=== PATIENT | female | born 1960 | race Caucasian/White ===

== ENCOUNTER → 2018-05-09 08:54 | Outpatient (CLI) | payer OTHER, MEDICAID, SELFPAY ==
--- NOTE | 2018-05-09 09:14 | DI.CT.S_ITS ---
PROCEDURE: CT CHEST WO CON INDICATIONS: breast cancer lung nodule. Smoker. TECHNIQUE: Noncontrast 5 mm thick sections acquired from the pulmonary apices to the posterior costophrenic angles. 7 mm thick coronal and sagittal MIP reformats were then acquired. For radiation dose reduction, the following was used: automated exposure control, adjustment of mA and/or kV according to patient size. COMPARISON: [facility], CT, THORAX WITHOUT CONTRAST, 03/07/2017, 11:47. [facility], CT, THORAX WITHOUT CONTRAST, 11/04/2017, 9:55. FINDINGS: Image quality: Excellent. Lungs and pleura: There is a stable 0.5 cm left upper lobe pulmonary nodule compared to the prior studies. No suspicious pulmonary nodules. [id number] centrilobular emphysematous changes are redemonstrated bilaterally as well as mild subpleural reticular opacities. No acute consolidation. No pleural effusions or pneumothorax. Central and peripheral airways are patent and normal in caliber. Mediastinum: Heart size is normal. No pericardial effusion. No mediastinal adenopathy by size criteria. Thoracic aorta and central pulmonary arteries are normal in size. Esophagus is normal in caliber. No hiatal hernia. Bones and chest wall: There are surgical clips and scarring redemonstrated within the left breast. No suspicious bony lesions. No vertebral body compression fractures. No axillary or supraclavicular adenopathy by size criteria. Abdomen: Visualized upper abdominal solid organs and bowel loops appear normal in the absence of contrast. IMPRESSION: 1. Stable left upper lobe pulmonary nodule. Given patient's history of breast cancer, continued followup is recommended to demonstrate 2 year stability in 12 months. Dictated by: Nolan Hatfield M.D. on 05/09/2018 at 10:22 Approved by: Nolan Hatfield M.D. on 05/09/2018 at 10:28
--- NOTE | 2018-05-12 16:19 | PC.NURSE ---
CT scan-AN/SYQ 13 NAV/C2 OPERATOR requested triage nurse call to let pt know CT scan of chest is stable -no evidence of malignancy with stable pulmonary nodule.Repoted to pt via phone
== END ==
PROVIDERS: Family Provider Family Medicine; PCP Family Medicine; Visit Provider Nurse Practitioner Gerontology
DX: C50.919 Malignant neoplasm of unspecified site of unspecified female breast (principal); R91.1 Solitary pulmonary nodule; F17.200 Nicotine dependence, unspecified, uncomplicated
CPT/HCPCS: 71250

== ENCOUNTER → 2018-06-05 11:18 | Outpatient (CLI) | payer OTHER, MEDICAID, SELFPAY ==
[2018-06-05 12:21] LABS: Cholesterol 188 mg/dL (140-199); HDL Cholesterol 63 mg/dL (40-60); LDL Cholesterol Calculated 105 mg/dL (<100); Triglycerides 102 mg/dL (35-150)
== END ==
PROVIDERS: PCP Family Medicine; Visit Provider Family Medicine
DX: E78.2 Mixed hyperlipidemia (principal)
CPT/HCPCS: 36415; 80061

== ENCOUNTER → 2018-08-04 10:20 | Outpatient (CLI) | payer OTHER, MEDICAID, SELFPAY ==
[2018-08-04 12:20] LABS: Alanine Aminotransferase 39 IU/L (9-52); Albumin 4.4 g/dL (3.5-5.0); Albumin Globulin Ratio 1.5 (1.0-2.8); Alkaline Phosphatase 76 U/L (38-126); Aspartate Aminotransferase 32 IU/L (14-36); Bilirubin Total 0.4 mg/dL (0.2-1.3); Blood Urea Nitrogen 16 mg/dL (7-17); Calcium 9.2 mg/dL (8.4-10.2); Carbon Dioxide 31 mmol/L (22-32); Chloride 101 mmol/L (98-107); Estimated Glomerular Filt Rate > 60.0 mL/min (>60); Glucose 93 mg/dL (70-100); HEMOLYSIS < 15 (0-50); Potassium 3.4 mmol/L (3.4-5.1); Sodium 140 mmol/L (137-145); Total Protein 7.4 g/dL (6.3-8.2)
== END ==
PROVIDERS: PCP Family Medicine; Visit Provider Family Medicine
DX: E78.2 Mixed hyperlipidemia (principal); J43.9 Emphysema, unspecified
CPT/HCPCS: 36415; 80053

== ENCOUNTER → 2018-11-03 10:56 | Outpatient (CLI) | payer OTHER, MEDICAID, SELFPAY ==
[2018-11-03 11:17] LABS: Add Manual Diff / Slide Review NO; Basophils Percent Auto 1.1 % (0-2); Hematocrit 46.7 % (36-46); Hemoglobin 15.6 g/dL (12.0-16.0); Lymphocytes Percent Auto 24.5 % (25-40); Mean Corpuscular HGB Conc 33.5 % (30-36); Mean Corpuscular Hemoglobin 29.4 PG (26-34); Mean Corpuscular Volume 87.9 fL (80-100); Monocytes Percent Auto 5.3 % (3-14); Neutrophils Absolute Auto 4800 /uL (1500-7000); Neutrophils Percent Auto 66.1 % (50-75); Platelet Count 204 X10^3/uL (150-400); Red Blood Cell Count 5.32 X10^6/uL (4.0-5.2); Red Cell Distribution Width 14.7 % (11.6-14.8); White Blood Cell Count 7.2 X10^3/uL (4.5-11.0)
[2018-11-03 11:29] LABS: Alanine Aminotransferase 34 IU/L (9-52); Albumin 4.3 g/dL (3.5-5.0); Albumin Globulin Ratio 1.6 (1.0-2.8); Alkaline Phosphatase 68 U/L (38-126); Aspartate Aminotransferase 30 IU/L (14-36); BUN Creatinine Ratio 18.6 (6-22); Bilirubin Total 0.3 mg/dL (0.2-1.3); Blood Urea Nitrogen 13 mg/dL (7-17); Calcium 8.8 mg/dL (8.4-10.2); Carbon Dioxide 24 mmol/L (22-32); Chloride 106 mmol/L (98-107); Estimated Glomerular Filt Rate > 60.0 mL/min (>60); Globulin 2.7 g/dL (1.7-4.1); Glucose 94 mg/dL (70-100); HEMOLYSIS 19 (0-50); Potassium 3.5 mmol/L (3.4-5.1); Sodium 140 mmol/L (137-145)
== END ==
PROVIDERS: Family Provider Family Medicine; PCP Family Medicine; Visit Provider Nurse Practitioner Gerontology
DX: C50.912 Malignant neoplasm of unspecified site of left female breast (principal)
CPT/HCPCS: 36415; 80053; 85025

== ENCOUNTER → 2018-11-18 06:58 | Outpatient (CLI) | payer OTHER, MEDICAID, SELFPAY ==
[2018-11-18 08:46] LABS: Alanine Aminotransferase 31 IU/L (9-52); Albumin 4.2 g/dL (3.5-5.0); Albumin Globulin Ratio 1.4 (1.0-2.8); Alkaline Phosphatase 65 U/L (38-126); Aspartate Aminotransferase 32 IU/L (14-36); BUN Creatinine Ratio 13.3 (6-22); Bilirubin Total 0.5 mg/dL (0.2-1.3); Blood Urea Nitrogen 12 mg/dL (7-17); Carbon Dioxide 30 mmol/L (22-32); Chloride 101 mmol/L (98-107); Cholesterol 192 mg/dL (140-199); Estimated Glomerular Filt Rate > 60.0 mL/min (>60); Glucose 86 mg/dL (70-100); HDL Cholesterol 50 mg/dL (40-60); HEMOLYSIS 16 (0-50); LDL Cholesterol Calculated 107 mg/dL (<100); Potassium 3.5 mmol/L (3.4-5.1); Sodium 138 mmol/L (137-145); Total Protein 7.2 g/dL (6.3-8.2); Triglycerides 175 mg/dL (35-150)
== END ==
PROVIDERS: PCP Family Medicine; Visit Provider Family Medicine
DX: E78.2 Mixed hyperlipidemia (principal)
CPT/HCPCS: 36415; 80053; 80061

== ENCOUNTER → 2018-12-23 16:04 | Outpatient (CLI) | payer OTHER, MEDICAID, SELFPAY ==
--- NOTE | 2018-12-23 16:11 | DI.RAD.S_ITS ---
PROCEDURE: XR CHEST 2V INDICATIONS: copd exac TECHNIQUE: 2 views of the chest were acquired. COMPARISON: [facility], CT, CT CHEST WO CON, 05/09/2018, 8:52. FINDINGS: Surgical changes and devices: Clips are present overlying the left hemithorax. Lungs and pleura: Linear opacity overlying the left upper quadrant. No pleural effusions or pneumothorax. Mediastinum: Mediastinal contours are normal. Heart size is normal. Bones and chest wall: No suspicious bony abnormalities. Soft tissues appear unremarkable. IMPRESSION: Linear left upper quadrant opacity. This could represent a skinfold or potentially atelectasis. If of clinical concern, a lateral view is recommended. Dictated by: Poppy Frederick M.D. on 12/23/2018 at 17:10 Approved by: Poppy Frederick M.D. on 12/23/2018 at 17:10
== END ==
PROVIDERS: Family Provider Family Medicine; PCP Family Medicine; Visit Provider Family Medicine
DX: J44.1 Chronic obstructive pulmonary disease with (acute) exacerbation (principal)
CPT/HCPCS: 71046

== ENCOUNTER → 2019-01-12 14:20 | Outpatient (CLI) | payer OTHER, MEDICAID, SELFPAY ==
--- NOTE | 2019-01-12 14:22 | DI.MG.S_ITS ---
BILATERAL DIGITAL SCREENING MAMMOGRAM 3D/2D WITH CAD POST LUMPECTOMY: 01/12/2019 CLINICAL: Routine screening. Personal history of left breast cancer. Comparison is made to exams dated: 12/27/2017 mammogram, 12/13/2016 mammogram, and 04/04/2017 mammogram - [facility]. There are scattered fibroglandular elements in both breasts. Current study was also evaluated with a Computer Aided Detection (CAD) system. There are benign post operative findings in the left breast. No significant masses, calcifications, or other findings are seen in either breast. There has been no significant interval change. IMPRESSION: There is no mammographic evidence of malignancy. A 1 year screening mammogram is recommended. This exam was interpreted at Station ID: [id number]. NOTE: For mammograms, a report in lay terms will be sent to the patient. Approximately 15% of breast malignancies will not be visualized mammographically. In the management of a palpable breast mass, a negative mammogram must not discourage biopsy of a clinically suspicious lesion. Electronically Signed By: Humza angulo/guillermina:01/12/2019 17:10:49 copy to: YENNI BALBUENA letter sent: Normal Exam ACR BI-RADS Category 2: Benign Finding(s) 3342F
== END ==
PROVIDERS: Family Provider Family Medicine; PCP Family Medicine; Visit Provider Family Medicine
DX: Z12.31 Encounter for screening mammogram for malignant neoplasm of breast (principal); Z85.3 Personal history of malignant neoplasm of breast
CPT/HCPCS: 77063; 77067

== ENCOUNTER → 2019-04-20 07:35 | Outpatient (CLI) | payer OTHER, MEDICAID, SELFPAY ==
--- NOTE | 2019-04-20 07:38 | DI.CT.S_ITS ---
PROCEDURE: CT CHEST WO CON INDICATIONS: f/u nodule TECHNIQUE: Noncontrast 2.0-2.5 mm thick sections acquired from the pulmonary apices to the posterior costophrenic angles. 7 mm thick coronal and sagittal MIP reformats were then acquired. A low radiation dose technique was utilized. COMPARISON: [facility], CT, THORAX WITHOUT CONTRAST, 03/07/2017, 11:47. [facility], CT, CT CHEST WO CON, 05/09/2018, 8:52. FINDINGS: Image quality: Diagnostic, given the low radiation dose technique. Lungs and pleura: At the posterior left upper lobe near the apex a calcified nodule measuring up to 5 mm is again seen, having not changed from February 2017 and best visualized on series 3 image 35. Emphysematous change is present within the lung parenchyma elsewhere, and there is mild linear scarring at the lateral left lung base previously present also in 2017. Mediastinum: Heart size is normal. No pericardial effusion. No mediastinal adenopathy by size criteria. Thoracic aorta and central pulmonary arteries are normal in size. Esophagus is normal in caliber. No hiatal hernia. Bones and chest wall: No suspicious bony lesions. No vertebral body compression fractures. No axillary or supraclavicular adenopathy by size criteria. Thyroid gland appears normal. Abdomen: Visualized upper abdomen solid organs and bowel loops appear normal in the absence of contrast. IMPRESSION: There is a stable appearing calcified nodule at the posterior left upper lobe near the apex, 5 mm in maximal dimension, not having changed from a comparison chest CT 03/07/17. This is a presumed granuloma, and given stability of appearance over time no followup is recommended. Emphysematous change management lead the upper lungs is noted, presumed long-standing smoking history. Depending on the clinical status the patient may be a candidate for low dose noncontrast screening CT for development of subsequent lung carcinoma. Dictated by: Ramez Booth M.D. on 04/20/2019 at 9:56 Approved by: Ramez Booth M.D. on 04/20/2019 at 10:06
[2019-04-20 09:33] LABS: Alanine Aminotransferase 32 IU/L (9-52); Albumin 4.2 g/dL (3.5-5.0); Albumin Globulin Ratio 1.4 (1.0-2.8); Alkaline Phosphatase 76 U/L (38-126); Aspartate Aminotransferase 35 IU/L (14-36); Bilirubin Total 0.6 mg/dL (0.2-1.3); Blood Urea Nitrogen 16 mg/dL (7-17); Carbon Dioxide 28 mmol/L (22-32); Chloride 105 mmol/L (98-107); Cholesterol 194 mg/dL (140-199); Estimated Glomerular Filt Rate > 60.0 mL/min (>60); Globulin 2.9 g/dL (1.7-4.1); Glucose 85 mg/dL (70-100); HDL Cholesterol 56 mg/dL (40-60); HEMOLYSIS < 15 (0-50); LDL Cholesterol Calculated 118 mg/dL (<100); Potassium 3.5 mmol/L (3.4-5.1); Sodium 141 mmol/L (137-145); Total Protein 7.1 g/dL (6.3-8.2); Triglycerides 101 mg/dL (35-150)
[2019-04-20 09:43] LABS: Add Manual Diff / Slide Review NO; Basophils Absolute Auto 100 /uL (0-100); Basophils Percent Auto 0.8 % (0-2); Eosinophils Absolute Auto 200 /uL (0-450); Eosinophils Percent Auto 2.7 % (2-4); Hematocrit 47.5 % (36-46); Lymphocytes Absolute Auto 3000 /uL (1100-4500); Lymphocytes Percent Auto 32.8 % (25-40); Mean Corpuscular HGB Conc 33.6 % (30-36); Mean Corpuscular Hemoglobin 29.4 PG (26-34); Mean Corpuscular Volume 87.6 fL (80-100); Monocytes Absolute Auto 600 /uL (0-900); Neutrophils Absolute Auto 5300 /uL (1500-7000); Neutrophils Percent Auto 57.7 % (50-75); Platelet Count 215 X10^3/uL (150-400); Red Blood Cell Count 5.43 X10^6/uL (4.0-5.2); White Blood Cell Count 9.2 X10^3/uL (4.5-11.0)
[2019-04-20 09:58] LABS: Thyroid Stimulating Hormone 3.83 uIU/mL (0.47-4.68)
== END ==
PROVIDERS: PCP Family Medicine
DX: C50.919 Malignant neoplasm of unspecified site of unspecified female breast (principal); Z13.29 Encounter for screening for other suspected endocrine disorder; R91.1 Solitary pulmonary nodule; E78.2 Mixed hyperlipidemia; Z51.81 Encounter for therapeutic drug level monitoring
CPT/HCPCS: 36415; 71250; 80053; 80061; 84443; 85025

== ENCOUNTER → 2020-03-16 14:37 | Outpatient (CLI) | payer OTHER, MEDICAID, SELFPAY ==
--- NOTE | 2020-03-16 | DI.MG.S_ITS ---
BILATERAL DIGITAL SCREENING MAMMOGRAM 3D/2D WITH CAD POST LUMPECTOMY: 03/16/2020 CLINICAL: Routine screening. Personal history of left breast cancer. Comparison is made to exams dated: 01/12/2019 mammogram, 12/27/2017 mammogram, and 02/04/2017 [facility]. There are scattered fibroglandular elements in both breasts. Current study was also evaluated with a Computer Aided Detection (CAD) system. There are benign post operative findings in the left breast. No significant masses, calcifications, or other findings are seen in either breast. There has been no significant interval change. IMPRESSION: There is no mammographic evidence of malignancy. A 1 year screening mammogram is recommended. This exam was interpreted at Station ID: [id number]. NOTE: For mammograms, a report in lay terms will be sent to the patient. Approximately 15% of breast malignancies will not be visualized mammographically. In the management of a palpable breast mass, a negative mammogram must not discourage biopsy of a clinically suspicious lesion. Electronically Signed By: Nolan sagastume/guillermina:03/16/2020 16:25:57 copy to: YENNI BALBUENA letter sent: Normal Exam ACR BI-RADS Category 2: Benign Finding(s) 3342F
[2020-03-16 16:00] LABS: Add Manual Diff / Slide Review NO; Basophils Absolute Auto 100 /uL (0-100); Basophils Percent Auto 1.2 % (0-2); Eosinophils Absolute Auto 200 /uL (0-450); Eosinophils Percent Auto 2.1 % (2-4); Hematocrit 48.1 % (36-46); Hemoglobin 16.3 g/dL (12.0-16.0); Lymphocytes Absolute Auto 3000 /uL (1100-4500); Lymphocytes Percent Auto 30.8 % (25-40); Mean Corpuscular Volume 85.3 fL (80-100); Monocytes Absolute Auto 600 /uL (0-900); Monocytes Percent Auto 6.2 % (3-14); Neutrophils Absolute Auto 5900 /uL (1500-7000); Neutrophils Percent Auto 59.7 % (50-75); Platelet Count 238 X10^3/uL (150-400); Red Blood Cell Count 5.63 X10^6/uL (4.0-5.2); Red Cell Distribution Width 13.8 % (11.6-14.8); White Blood Cell Count 9.9 X10^3/uL (4.5-11.0)
[2020-03-16 16:09] LABS: Alanine Aminotransferase 21 IU/L (<35); Albumin 4.6 g/dL (3.5-5.0); Albumin Globulin Ratio 1.4 (1.0-2.8); Alkaline Phosphatase 82 U/L (38-126); Aspartate Aminotransferase 29 IU/L (14-36); BUN Creatinine Ratio 17.5 (6-22); Bilirubin Total 0.6 mg/dL (0.2-1.3); Blood Urea Nitrogen 14 mg/dL (7-17); Calcium 9.7 mg/dL (8.4-10.2); Carbon Dioxide 29 mmol/L (22-32); Chloride 100 mmol/L (98-107); Cholesterol 201 mg/dL (140-199); Estimated Glomerular Filt Rate > 60.0 mL/min (>60); Globulin 3.2 g/dL (1.7-4.1); Glucose 96 mg/dL (80-110); HDL Cholesterol 49 mg/dL (40-60); HEMOLYSIS < 15 (0-50); LDL Cholesterol Calculated 124 mg/dL (<100); Potassium 3.9 mmol/L (3.4-5.1); Sodium 140 mmol/L (137-145); Total Protein 7.8 g/dL (6.3-8.2); Triglycerides 142 mg/dL (35-150)
== END ==
PROVIDERS: Family Provider Family Medicine; PCP Internal Medicine; Referring Provider Radiology Radiation Oncology; Visit Provider Radiology Radiation Oncology
DX: Z12.31 Encounter for screening mammogram for malignant neoplasm of breast (principal); D05.12 Intraductal carcinoma in situ of left breast; D58.2 Other hemoglobinopathies; J44.9 Chronic obstructive pulmonary disease, unspecified; M19.90 Unspecified osteoarthritis, unspecified site
CPT/HCPCS: 36415; 77063; 77067; 80053; 80061; 85025

== ENCOUNTER → 2020-06-13 12:11 | Outpatient (CLI) | payer OTHER, MEDICAID, SELFPAY ==
[2020-06-15 09:35] LABS: COVID19 Sendout Not Detected (Not Detect)
== END ==
PROVIDERS: Physician Assistant; Family Provider Family Medicine; PCP Internal Medicine; Referring Provider Physician Assistant; Visit Provider Physician Assistant
DX: Z11.59 Encounter for screening for other viral diseases (principal); R15.2 Fecal urgency
CPT/HCPCS: 87635

== ENCOUNTER → 2020-06-28 08:51 | Outpatient (CLI) | payer OTHER, MEDICAID, SELFPAY ==
[2020-06-28 10:20] LABS: Estimated Glomerular Filt Rate > 60.0 mL/min (>60)
== END ==
PROVIDERS: Family Provider Family Medicine; PCP Internal Medicine; Referring Provider Physician Assistant; Visit Provider Physician Assistant
DX: Z01.812 Encounter for preprocedural laboratory examination (principal)
CPT/HCPCS: 36415; 82565

== ENCOUNTER → 2020-06-29 09:46 | Outpatient (CLI) | payer OTHER, MEDICAID, SELFPAY ==
--- NOTE | 2020-06-29 | DI.CT.S_ITS ---
PROCEDURE: CT ABDOMEN PELVIS W CON INDICATIONS: Hemorrhage of anus and rectum, abdominal pain TECHNIQUE: After the administration of oral and intravenous contrast, 5 mm thick sections acquired from the diaphragms to the symphysis. 5 mm thick coronal and sagittal reformats were performed. For radiation dose reduction, the following was used: automated exposure control, adjustment of mA and/or kV according to patient size. COMPARISON: [facility], CT, CT CHEST WO [facility], 04/20/2019, 7:42. FINDINGS: Image quality: Excellent. ABDOMEN: Lung bases: There is a spiculated nodular density within the left lateral lung base measuring 16 mm diameter, which is unchanged. There is scarring within the right middle lobe. Heart size is normal. Solid organs: Liver is normal in size . There is a hypodense mass within the right hepatic lobe measuring 18 mm diameter. There is a suggestion of vague nodular enhancement within this mass. Gallbladder is within normal limits . Biliary system is non-dilated. Pancreas enhances normally. Spleen is normal in size and enhancement. No right adrenal nodules. There is a 9 mm diameter nodule within the anterior aspect of the left adrenal gland with postcontrast 10 filled units of 38. Kidneys are normal in size and enhancement, without hydronephrosis. Peritoneum and bowel: Stomach, small bowel, and colon loops are normal in caliber and wall thickness. Diverticulosis of the descending and sigmoid colon is present. Normal appendix. No free fluid or air. Nodes and vessels: No retroperitoneal or mesenteric adenopathy. Aorta and inferior vena cava are normal in caliber. There is moderate plaque causing mild diffuse stenosis of the abdominal aorta. Miscellaneous: No ventral hernias. PELVIS: Genitourinary: Bladder wall thickness is normal. Miscellaneous: No inguinal hernias or adenopathy. Bones: No suspicious bony lesions. No vertebral body compression fractures. IMPRESSION: 1. Distal colonic diverticulosis. No evidence of acute diverticulitis. 2. Indeterminate right hepatic lobe mass, which could indicate a hemangioma. Liver protocol MRI with and without intravenous contrast is recommended for further assessment. 3. Indeterminate left adrenal nodule, which could be further assessed with adrenal protocol MRI, if clinically indicated. 4. No change in left lung base nodule. Dictated by: Benjamin Sebastian M.D. on 06/29/2020 at 10:57 Approved by: Benjamin Sebastian M.D. on 06/29/2020 at 11:02
== END ==
PROVIDERS: Family Provider Family Medicine; PCP Internal Medicine; Referring Provider Physician Assistant; Visit Provider Physician Assistant
DX: R10.30 Lower abdominal pain, unspecified (principal); K62.5 Hemorrhage of anus and rectum; R15.2 Fecal urgency; K57.30 Diverticulosis of large intestine without perforation or abscess without bleeding; K76.9 Liver disease, unspecified; R91.1 Solitary pulmonary nodule; E27.9 Disorder of adrenal gland, unspecified
CPT/HCPCS: 74177

== ENCOUNTER → 2020-08-01 14:58 | Outpatient (CLI) | payer OTHER, MEDICAID, SELFPAY ==
[2020-08-01 20:53] LABS: Campylobacter Not Detected (Not Detect); Clostridium difficile toxin AB Not Detected (Not Detect); Enteroaggregative E.coli Not Detected (Not Detect); Enteropathogenic E.coli Detected (Not Detect); Plesiomonsa shigelloides Not Detected (Not Detect); Salmonella Not Detected (Not Detect); Vibrio Not Detected (Not Detect); Vibrio cholerae Not Detected (Not Detect); Yersinia enterocolitica Not Detected (Not Detect)
[2020-08-01 20:54] LABS: Adenovirus F 40/41 Not Detected (Not Detect); Astrovirus Not Detected (Not Detect); Cryptosporidium Not Detected (Not Detect); Cyclospora cayetanensis Not Detected (Not Detect); Entamoeba histolytica Not Detected (Not Detect); Enterotoxigenic E.coli It/st Not Detected (Not Detect); Giardia lamblia Not Detected (Not Detect); Norovirus GI/GII Not Detected (Not Detect); Rotavirus A Not Detected (Not Detect); Sapovirus Not Detected (Not Detect); Shiga-like toxin-prod E.coli Not Detected (Not Detect); Shigella/Enteroinvasive E.coli Not Detected (Not Detect)
== END ==
PROVIDERS: Family Provider Family Medicine; PCP Internal Medicine; Referring Provider Internal Medicine; Visit Provider Internal Medicine
DX: R19.7 Diarrhea, unspecified (principal)
CPT/HCPCS: 87507

== ENCOUNTER → 2021-01-26 09:52 | Outpatient (CLI) | payer OTHER, MEDICAID, SELFPAY ==
[2021-01-26] MEDS: COVID-19 VACC #1, MRNA(MOD) 100 MCG/0.5 ML VIAL IM (09:57)
== END ==
PROVIDERS: Family Provider Family Medicine; PCP Internal Medicine; Visit Provider Internal Medicine
DX: Z23 Encounter for immunization (principal)
CPT/HCPCS: 0011A; 91301

== ENCOUNTER → 2021-02-23 09:39 | Outpatient (CLI) | payer OTHER, MEDICAID, SELFPAY ==
[2021-02-23] MEDS: COVID-19 VACC #2, MRNA(MOD) 100 MCG/0.5 ML VIAL IM (09:46)
== END ==
PROVIDERS: Family Provider Family Medicine; PCP Internal Medicine; Visit Provider Internal Medicine
DX: Z23 Encounter for immunization (principal)
CPT/HCPCS: 0012A; 91301

== ENCOUNTER → 2021-03-17 10:02 | Outpatient (CLI) | payer OTHER, MEDICAID, SELFPAY ==
--- NOTE | 2021-03-17 10:04 | DI.MG.S_ITS ---
BILATERAL DIGITAL SCREENING MAMMOGRAM 3D/2D WITH CAD POST LUMPECTOMY: 03/17/2021 CLINICAL: Routine screening. Personal history of left breast cancer. Comparison is made to exams dated: 03/16/2020 mammogram, 01/12/2019 mammogram, and 12/27/2017 mammogram - [facility]. There are scattered fibroglandular elements in both breasts. Current study was also evaluated with a Computer Aided Detection (CAD) system. There are benign post operative findings in the left breast. No significant masses, calcifications, or other findings are seen in either breast. There has been no significant interval change. IMPRESSION: BENIGN There is no mammographic evidence of malignancy. A 1 year screening mammogram is recommended. This exam was interpreted at Station ID: [id number]. NOTE: For mammograms, a report in lay terms will be sent to the patient. Approximately 15% of breast malignancies will not be visualized mammographically. In the management of a palpable breast mass, a negative mammogram must not discourage biopsy of a clinically suspicious lesion. Electronically Signed By: Sunil Garcia acr/penrad:03/17/2021 13:03:07 copy to: YENNI BALBUENA copy to: Yenni Brown letter sent: Normal Exam ACR BI-RADS Category 2: Benign Finding(s) 3342F
--- NOTE | 2021-03-17 10:04 | DI.CT.S_ITS ---
PROCEDURE: CT CHEST WO CON INDICATIONS: lung nodule TECHNIQUE: Noncontrast 2.0-2.5 mm thick sections acquired from the pulmonary apices to the posterior costophrenic angles. 7 mm thick axial MIP and 5 mm coronal and sagittal reformats were then acquired. A low radiation dose technique was utilized. COMPARISON: [facility], CT, CT CHEST WO CON, 04/20/2019, 7:42. FINDINGS: Lungs: Scattered subsegmental atelectasis and/or scarring. No focal consolidation. Airway thickening in keeping with nonspecific bronchitis and/or reactive airways disease. Previously seen subpleural nodule in the left lung base image 236/3 measures 1.2 x 0.8 cm, unchanged since 04/20/19. Background upper lobe centrilobular emphysema. 5 mm calcified granuloma in the left upper lobe is un changed in keeping with calcified granuloma. 5 mm right upper lobe pulmonary nodule on image 54/3 is also unchanged since 04/20/19. Pleura: No pleural effusion or pneumothorax. Heart: Heart size is normal. No pericardial effusion. Chest nodes: Normal. Thyroid gland: Normal. Aorta: Normal in size. Pulmonary arteries: Normal Esophagus: Normal Upper abdomen: No significant findings. Bones: Normal. IMPRESSION: Overall, stable examination. No suspicious pulmonary nodule or progressive changes. If the patient meets criteria recommend continued annual lung screening CT. Emphysema Scattered scarring/atelectasis. Fleischner Society criteria for SOLID lung nodule followup. Nodule size (mm)Low-risk patientHigh-risk patient<6 (single or multiple)No routine followup.Optional CT at 12 months. 6-8 (single or multiple)CT at 6-12 months, then optional CT at 18-24 mo.CT at 6-12 months, then CT at 18-24 months. >8 (single)CT at 3 months, PET-CT, or biopsy. Same as for low-risk pts. >8 (multiple)CT at 3-6 months, then optional CT at 18-24 mo.CT at 3-6 months, then CT at 18-24 months. Fleischner Society criteria for SUB-SOLID lung nodule followup. Solitary pure ground-glass nodules<6 mm (ground glass or part solid)No followup needed. 6 mm or larger (ground glass)CT at 6-12 months to confirm persistence, then CT every 2 years until 5 years.6 mm or larger (part solid)CT at 3-6 months to confirm persistence, then annual CT until 5 years if unchanged and solid component remains <6 mm. Multiple sub-solid nodules<6 mmCT at 3-6 months, then CT consider at 2 & 4 years for high risk patients. [address] at 3-6 months. Subsequent management based on most suspicious lesions. Recommendations do not apply to lung cancer screening, patients with immunosuppression, or patients with known primary cancer. Dictated by: Jacob Rios M.D. on 03/17/2021 at 11:12 Approved by: Jacob Rios M.D. on 03/17/2021 at 11:20
== END ==
PROVIDERS: Family Provider Family Medicine; PCP Internal Medicine; Referring Provider Internal Medicine Hematology & Oncology; Visit Provider Internal Medicine Hematology & Oncology
DX: Z12.31 Encounter for screening mammogram for malignant neoplasm of breast (principal); Z85.3 Personal history of malignant neoplasm of breast; R91.1 Solitary pulmonary nodule; J43.2 Centrilobular emphysema
CPT/HCPCS: 36415; 71250; 77063; 77067; 80053; 85025

== ENCOUNTER → 2021-04-13 12:12 | Outpatient (CLI) | payer OTHER, MEDICAID, SELFPAY ==
[2021-04-13 13:08] LABS: Add Manual Diff / Slide Review NO; Basophils Absolute Auto 100 /uL (0-100); Basophils Percent Auto 1.2 % (0-2); Eosinophils Absolute Auto 100 /uL (0-450); Eosinophils Percent Auto 1.7 % (2-4); Hematocrit 48.8 % (36-46); Hemoglobin 16.1 g/dL (12.0-16.0); Lymphocytes Absolute Auto 2000 /uL (1100-4500); Lymphocytes Percent Auto 23.5 % (25-40); Mean Corpuscular HGB Conc 33.1 % (30-36); Mean Corpuscular Hemoglobin 28.8 PG (26-34); Mean Corpuscular Volume 87.1 fL (80-100); Monocytes Absolute Auto 400 /uL (0-900); Monocytes Percent Auto 4.4 % (3-14); Neutrophils Absolute Auto 6000 /uL (1500-7000); Neutrophils Percent Auto 69.2 % (50-75); Platelet Count 211 X10^3/uL (150-400); Red Blood Cell Count 5.61 X10^6/uL (4.0-5.2); Red Cell Distribution Width 14.3 % (11.6-14.8); White Blood Cell Count 8.6 X10^3/uL (4.5-11.0)
[2021-04-13 13:19] LABS: Alanine Aminotransferase 27 IU/L (<35); Albumin 4.4 g/dL (3.5-5.0); Albumin Globulin Ratio 1.5 (1.0-2.8); Alkaline Phosphatase 65 U/L (38-126); Aspartate Aminotransferase 31 IU/L (14-36); BUN Creatinine Ratio 22.2 (6-22); Bilirubin Total 0.4 mg/dL (0.2-1.3); Blood Urea Nitrogen 16 mg/dL (7-17); Calcium 9.6 mg/dL (8.4-10.2); Carbon Dioxide 25 mmol/L (22-32); Chloride 105 mmol/L (98-107); Estimated Glomerular Filt Rate > 60.0 mL/min (>60); Globulin 2.9 g/dL (1.7-4.1); Glucose 105 mg/dL (80-110); HEMOLYSIS < 15 (0-50); Lipase 60 U/L (23-300); Potassium 4.4 mmol/L (3.4-5.1); Sodium 138 mmol/L (137-145); Total Protein 7.3 g/dL (6.3-8.2)
== END ==
PROVIDERS: Family Provider Family Medicine; PCP Internal Medicine; Referring Provider Physician Assistant; Visit Provider Physician Assistant
DX: N39.0 Urinary tract infection, site not specified (principal); R10.9 Unspecified abdominal pain
CPT/HCPCS: 36415; 80053; 83690; 85025; 87086

== ENCOUNTER → 2021-04-24 09:55 | Outpatient (CLI) | payer OTHER, MEDICAID, SELFPAY ==
--- NOTE | 2021-04-24 09:57 | DI.CT.S_ITS ---
PROCEDURE: CT ABDOMEN PELVIS WO/W CON INDICATIONS: Left Flank Pain TECHNIQUE: Optional 5 mm thick noncontrast images acquired from the diaphragm to the symphysis pubis. After the administration of intravenous contrast, 5 mm thick images acquired from the diaphragm to the symphysis pubis after a 10-minute delay. 2 mm thick coronal and sagittal reformats were then performed of the kidneys and ureters. For radiation dose reduction, the following was used: automated exposure control, adjustment of mA and/or kV according to patient size. COMPARISON: None. FINDINGS: Lower thorax: The lung bases are clear. Heart size normal. No hiatal hernia. Liver: Normal in size and attenuation. No contour deformity present. Biliary system: No calcified cholelithiasis or pericholecystic inflammation. No intra or extrahepatic bile duct dilatation. Pancreas: Unremarkable without mass or inflammation evident. Spleen: Normal in size and density. Adrenals: Normal morphology and density. Reproductive system: Unremarkable as visualized. Urinary system: Normal renal size and attenuation. No renal calculi, hydronephrosis, or solid mass present. Urinary bladder unremarkable. Both kidneys enhance and excrete contrast appropriately. Gastrointestinal system: The bowel appears unremarkable with no evidence of bowel obstruction or inflammation. The stomach appears unremarkable. Multiple diverticula arise from the sigmoid colon without evidence of diverticulitis. Appendix: No findings to suggest acute appendicitis. Peritoneal spaces: No mesenteric or retroperitoneal adenopathy. No free air. No free fluid. Vasculature: Aortic atherosclerotic vascular calcification noted without evidence of aneurysm. Musculoskeletal: Normal bone mineralization. No acute fractures. Abdominal wall intact without evidence of ventral or inguinal hernias. Circumferential disc bulge at L2-3 noted with moderate central and bilateral foraminal stenosis. IMPRESSION: 1. No acute findings. No evidence of renal calculi, hydronephrosis or obstructive uropathy. 2. Sigmoid diverticulosis without evidence of diverticulitis. 3. Multilevel degenerative disc disease with L2-3 disc bulge, moderate central and foraminal stenosis. Dictated by: Jayden Villanueva M.D. on 04/24/2021 at 10:04 Approved by: Jayden Villanueva M.D. on 04/24/2021 at 10:13
== END ==
PROVIDERS: Family Provider Family Medicine; PCP Internal Medicine; Referring Provider Internal Medicine; Visit Provider Internal Medicine
DX: R10.9 Unspecified abdominal pain (principal); K57.30 Diverticulosis of large intestine without perforation or abscess without bleeding; M51.36 Other intervertebral disc degeneration, lumbar region; M51.26 Other intervertebral disc displacement, lumbar region; M48.061 Spinal stenosis, lumbar region without neurogenic claudication
CPT/HCPCS: 74178

== ENCOUNTER → 2021-12-19 11:34 | Outpatient (CLI) | payer OTHER, MEDICAID, SELFPAY ==
[2021-12-19 12:38] LABS: Erythrocyte Sedimentation Rate 1 MM/HR (0-20)
[2021-12-19 12:52] LABS: Alanine Aminotransferase 32 IU/L (<35); Albumin 4.7 g/dL (3.5-5.0); Albumin Globulin Ratio 1.6 (1.0-2.8); Alkaline Phosphatase 61 U/L (38-126); Aspartate Aminotransferase 32 IU/L (14-36); BUN Creatinine Ratio 17.6 (6-22); Bilirubin Total 0.4 mg/dL (0.2-1.3); Blood Urea Nitrogen 15 mg/dL (7-17); Calcium 9.4 mg/dL (8.4-10.2); Carbon Dioxide 32 mmol/L (22-32); Chloride 104 mmol/L (98-107); Estimated Glomerular Filt Rate > 60.0 mL/min (>60); Globulin 2.9 g/dL (1.7-4.1); Glucose 99 mg/dL (80-110); HEMOLYSIS < 15 (0-50); Potassium 3.8 mmol/L (3.4-5.1); Sodium 144 mmol/L (137-145); Total Protein 7.6 g/dL (6.3-8.2)
== END ==
PROVIDERS: Family Provider Family Medicine; PCP Internal Medicine; Referring Provider Internal Medicine; Visit Provider Internal Medicine
DX: I10 Essential (primary) hypertension (principal); E78.2 Mixed hyperlipidemia
CPT/HCPCS: 36415; 80053; 85651

== ENCOUNTER → 2022-03-19 08:54 | Outpatient (CLI) | payer OTHER, MEDICAID, SELFPAY | PROVIDERS: Family Provider Family Medicine; PCP Internal Medicine; Referring Provider Internal Medicine; Visit Provider Internal Medicine | DX: Z12.31 Encounter for screening mammogram for malignant neoplasm of breast (principal) ==

== ENCOUNTER → 2022-03-19 08:54 | Outpatient (CLI) | payer OTHER, MEDICAID, SELFPAY ==
--- NOTE | 2022-03-19 08:55 | DI.MG.S_ITS ---
BILATERAL DIGITAL SCREENING MAMMOGRAM 3D/2D WITH CAD: 03/19/2022 CLINICAL: Routine screening. Personal history of left breast cancer. Comparison is made to exams dated: 03/17/2021 mammogram, 03/16/2020 mammogram, and 01/12/2019 mammogram - [facility]. The tissue of both breasts is predominantly fatty. Current study was also evaluated with a Computer Aided Detection (CAD) system. There are benign post operative findings in the left breast. No significant masses, calcifications, or other findings are seen in either breast. There has been no significant interval change. IMPRESSION: BENIGN There is no mammographic evidence of malignancy. A 1 year screening mammogram is recommended. This exam was interpreted at Station ID: [id number]. NOTE: For mammograms, a report in lay terms will be sent to the patient. Approximately 15% of breast malignancies will not be visualized mammographically. In the management of a palpable breast mass, a negative mammogram must not discourage biopsy of a clinically suspicious lesion. Electronically Signed By: Anitha subramanian/guillermina:03/19/2022 10:54:21 copy to: YENNI BALBUENA copy to: Yenni Brown letter sent: Normal Exam ACR BI-RADS Category 2: Benign Finding(s) [id number]
--- NOTE | 2022-03-19 09:48 | DI.CT.S_ITS ---
PROCEDURE: CT CHEST WO CON INDICATIONS: lung nodule, smoking TECHNIQUE: Noncontrast 2.0-2.5 mm thick sections acquired from the pulmonary apices to the posterior costophrenic angles. 7 mm thick axial MIP, and 5 mm coronal and sagittal reformats were then acquired. A low radiation dose technique was utilized. COMPARISON: [facility], CT, CT CHEST WO CON, 04/20/2019, 7:42. [facility], CT, CT CHEST WO CON, 03/17/2021, 10:42. FINDINGS: Image quality: Diagnostic, given the low radiation dose technique. Lungs and pleura: There is severe centrilobular emphysema with an apical predominance. A 5 mm pulmonary nodule is present within the right upper lobe unchanged from the [address] Mediastinum: Heart size is normal. No pericardial effusion. No mediastinal adenopathy by size criteria. Thoracic aorta and central pulmonary arteries are normal in size. Scattered atheromatous calcifications are present within the aortic arch. Esophagus is normal in caliber. No hiatal hernia. Bones and chest wall: Surgical clips are present within the upper outer quadrant of the left breast. No suspicious bony lesions. No vertebral body compression fractures. No axillary or supraclavicular adenopathy by size criteria. Thyroid gland is unremarkable. Abdomen: Visualized upper abdomen solid organs and bowel loops appear normal in the absence of contrast. IMPRESSION: Stable 5 mm right upper lobe pulmonary nodule. No new pulmonary nodules. LUNG-RADS 1; 12 month follow-up CT recommended. Dictated by: Lilly Hodgson M.D. on 03/19/2022 at 11:48 Approved by: Lilly Hodgson M.D. on 03/19/2022 at 12:03
== END ==
PROVIDERS: Family Provider Family Medicine; PCP Internal Medicine; Referring Provider Internal Medicine Hematology & Oncology; Visit Provider Internal Medicine Hematology & Oncology
DX: D05.12 Intraductal carcinoma in situ of left breast (principal); R91.1 Solitary pulmonary nodule; F17.200 Nicotine dependence, unspecified, uncomplicated; Z12.31 Encounter for screening mammogram for malignant neoplasm of breast
CPT/HCPCS: 71250; 77063; 77067

== ENCOUNTER → 2023-01-02 09:11 | Outpatient (CLI) | payer OTHER, MEDICAID, SELFPAY ==
[2023-01-02 10:13] LABS: Add Manual Diff / Slide Review NO; Basophils Absolute Auto 100 /uL (0-100); Basophils Percent Auto 0.7 % (0-2); Eosinophils Absolute Auto 200 /uL (0-450); Eosinophils Percent Auto 2.7 % (2-4); Hematocrit 47.5 % (36-46); Hemoglobin 15.9 g/dL (12.0-16.0); Lymphocytes Absolute Auto 2600 /uL (1100-4500); Lymphocytes Percent Auto 30.5 % (25-40); Mean Corpuscular HGB Conc 33.5 % (30-36); Mean Corpuscular Hemoglobin 29.3 PG (26-34); Mean Corpuscular Volume 87.4 fL (80-100); Monocytes Absolute Auto 600 /uL (0-900); Monocytes Percent Auto 6.6 % (3-14); Neutrophils Absolute Auto 5000 /uL (1500-7000); Neutrophils Percent Auto 59.5 % (50-75); Platelet Count 246 X10^3/uL (150-400); Red Blood Cell Count 5.44 X10^6/uL (4.0-5.2); Red Cell Distribution Width 13.5 % (11.6-14.8); White Blood Cell Count 8.4 X10^3/uL (4.5-11.0)
[2023-01-02 10:51] LABS: Alanine Aminotransferase 23 IU/L (<35); Albumin 4.3 g/dL (3.5-5.0); Albumin Globulin Ratio 1.6 (1.0-2.8); Alkaline Phosphatase 68 U/L (38-126); Aspartate Aminotransferase 26 IU/L (14-36); BUN Creatinine Ratio 23.6 (6-22); Bilirubin Total 0.5 mg/dL (0.2-1.3); Blood Urea Nitrogen 17 mg/dL (7-17); Calcium 9.3 mg/dL (8.4-10.2); Carbon Dioxide 31 mmol/L (22-32); Chloride 102 mmol/L (98-107); Cholesterol 178 mg/dL (140-199); Creatine Kinase 224 U/L (30-135); Estimated Glomerular Filt Rate > 60 mL/min (>60); Globulin 2.7 g/dL (1.7-4.1); Glucose 93 mg/dL (80-110); HDL Cholesterol 53 mg/dL (40-60); HEMOLYSIS < 15 (0-50); LDL Cholesterol Calculated 104 mg/dL (<100); Potassium 3.7 mmol/L (3.4-5.1); Sodium 141 mmol/L (137-145); Triglycerides 105 mg/dL (35-150)
== END ==
PROVIDERS: Family Provider Family Medicine; PCP Internal Medicine; Referring Provider Internal Medicine; Visit Provider Internal Medicine
DX: D58.2 Other hemoglobinopathies (principal); E78.2 Mixed hyperlipidemia; I10 Essential (primary) hypertension; J44.9 Chronic obstructive pulmonary disease, unspecified
CPT/HCPCS: 36415; 80053; 80061; 82550; 85025

== ENCOUNTER → 2023-03-20 08:31 | Outpatient (CLI) | payer OTHER, MEDICAID, SELFPAY ==
--- NOTE | 2023-03-20 08:32 | DI.CT.S_ITS ---
PROCEDURE: CT CHEST WO CON INDICATIONS: RIGHT LUNG NODULE TECHNIQUE: Noncontrast 2.0-2.5 mm thick sections acquired from the pulmonary apices to the posterior costophrenic angles. 7 mm thick axial MIP and 5 mm coronal and sagittal reformats were then acquired. A low radiation dose technique was utilized. COMPARISON: [facility], CT, CT CHEST WO CON, 03/19/2022, 9:38. FINDINGS: Image quality: Diagnostic, given the low radiation dose technique. Lungs and pleura: Solid 5 mm right apical lung nodule, 3/59, is stable. Subpleural septal scarring at the lung bases bilaterally. Moderate centrilobular and paraseptal emphysematous changes with an upper lobe predominance. There is some mucous dependently in the trachea. Central and peripheral airways are otherwise patent. No pleural effusions or pleural calcifications. Mediastinum: Heart size is normal. No pericardial effusion. No mediastinal adenopathy by size criteria. Thoracic aorta and central pulmonary arteries are normal in size. Esophagus is normal in caliber. No hiatal hernia. Bones and chest wall: No suspicious bony lesions. No vertebral body compression fractures. No axillary or supraclavicular adenopathy by size criteria. Cluster of surgical clips present in the upper outer left breast. Thyroid gland is normal . Abdomen: Visualized upper abdomen solid organs and bowel loops appear normal in the absence of contrast. IMPRESSION: 1. Stable, benign right upper lobe pulmonary nodule. 2. No new lung nodules. 3. Continue annual low-dose chest CT screening as long as the patient meets established criteria. Lung rads category one. Dictated by: Anitha Catherine M.D. on 03/20/2023 at 14:33 Approved by: Anitha Catherine M.D. on 03/20/2023 at 14:41
== END ==
PROVIDERS: Family Provider Family Medicine; PCP Internal Medicine; Referring Provider Internal Medicine Hematology & Oncology; Visit Provider Internal Medicine Hematology & Oncology
DX: D05.12 Intraductal carcinoma in situ of left breast (principal); R91.1 Solitary pulmonary nodule; Z12.31 Encounter for screening mammogram for malignant neoplasm of breast; Z85.3 Personal history of malignant neoplasm of breast
CPT/HCPCS: 71250; 77063; 77067

== ENCOUNTER → 2023-03-20 08:32 | Outpatient (CLI) | payer OTHER, MEDICAID, SELFPAY ==
--- NOTE | 2023-03-20 | DI.MG.S_ITS ---
BILATERAL DIGITAL SCREENING MAMMOGRAM 3D/2D WITH CAD POST LUMPECTOMY: 03/20/2023 CLINICAL: Routine screening. Personal history of left breast cancer. Comparison is made to exams dated: 03/19/2022 mammogram, 03/17/2021 mammogram, 03/16/2020 mammogram, and 01/12/2019 mammogram - [facility]. There are scattered areas of fibroglandular density in both breasts (category b / 25%-50% glandular tissue). Current study was also evaluated with a Computer Aided Detection (CAD) system. There are benign post operative findings in the left breast. No significant masses, calcifications, or other findings are seen in either breast. There has been no significant interval change. IMPRESSION: BENIGN There is no mammographic evidence of malignancy. A 1 year screening mammogram is recommended. This exam was interpreted at Station ID: [id number]. NOTE: For mammograms, a report in lay terms will be sent to the patient. Approximately 15% of breast malignancies will not be visualized mammographically. In the management of a palpable breast mass, a negative mammogram must not discourage biopsy of a clinically suspicious lesion. Electronically Signed By: Obed rodriguez/guillermina:03/20/2023 11:47:38 copy to: YENNI BALBUENA copy to: CORBY CHOWDARY letter sent: Normal Exam ACR BI-RADS Category 2: Benign Finding(s) [id number]
== END ==
PROVIDERS: Family Provider Family Medicine; PCP Internal Medicine; Referring Provider Internal Medicine; Visit Provider Internal Medicine
DX: Z12.31 Encounter for screening mammogram for malignant neoplasm of breast (principal); Z85.3 Personal history of malignant neoplasm of breast
CPT/HCPCS: 77063; 77067

== ENCOUNTER → 2024-03-30 09:47 | Outpatient (CLI) | payer OTHER, MEDICAID, SELFPAY ==
--- NOTE | 2024-03-30 09:47 | DI.MG.S_ITS ---
BILATERAL DIGITAL SCREENING MAMMOGRAM 3D/2D WITH CAD: 03/30/2024 CLINICAL: Routine screening. Personal history of left breast cancer. Comparison is made to exams dated: 03/20/2023 mammogram, 03/19/2022 mammogram, and 03/17/2021 mammogram - [facility]. Both breasts are almost entirely fatty (category a/<25% glandular tissue). Current study was also evaluated with a Computer Aided Detection (CAD) system. There are benign post operative findings in the left breast. No significant masses, calcifications, or other findings are seen in either breast. There has been no significant interval change. IMPRESSION: BENIGN There is no mammographic evidence of malignancy. A 1 year screening mammogram is recommended. This exam was interpreted at Station ID: [id number]. NOTE: For mammograms, a report in lay terms will be sent to the patient. Approximately 15% of breast malignancies will not be visualized mammographically. In the management of a palpable breast mass, a negative mammogram must not discourage biopsy of a clinically suspicious lesion. Electronically Signed By: Anitha subramanian/guillermina:03/30/2024 16:41:24 copy to: YENNI BALBUENA copy to: CORBY CHOWDARY letter sent: Normal Exam ACR BI-RADS Category 2: Benign Finding(s) 3342F
== END ==
PROVIDERS: Family Provider Family Medicine; PCP Internal Medicine; Referring Provider Internal Medicine; Visit Provider Internal Medicine
DX: Z12.31 Encounter for screening mammogram for malignant neoplasm of breast (principal); Z85.3 Personal history of malignant neoplasm of breast; R92.313 Mammographic fatty tissue density, bilateral breasts
CPT/HCPCS: 77063; 77067

== ENCOUNTER → 2024-04-02 15:30 | Oncology outpatient (ONC) | payer OTHER, MEDICAID, SELFPAY ==
--- NOTE | 2018-05-22 12:59 | ONC.APRN.PN ---
Assessment and Plan (1) Breast cancer Current visit: No Status: Acute 05/22/18 13:03 The patient is a 57 year old Female who is being seen in the clinic 05/22/2018 . Herb carries a diagnosis of stage I invasive breast cancer with an invasive compounded measuring only 1 mm. There was 2-1/2 cm of DCIS also identified. On exam today no clinical signs or symptoms of disease recurrence. We have been following a 0.5 cm left upper lobe pulmonary nodule. Most recent chest CT May 09, 2018 demonstrated stability, no change or growth identified in this nodule. Recommendation is to repeat imaging in 12 months. Most recent mammogram was December 27, 2017, mammogram was without evidence of malignancy. Return to clinic in 6 months time for provider visit, breast exam, CBC, CMP. At this appointment we will schedule chest CT in 6 months time. Patient strongly encouraged to reconsider smoking cessation. I offered any type of assistance the pt might be interested in. 05/22/18 13:31 - Time Spent with Patient 30 mins PN -Subjective Interval history: The patient is a 57 year old Female who is being seen in the clinic 05/22/2018 . Herb carries a diagnosis of stage I invasive breast cancer with an invasive compounded measuring only 1 mm. There was 2-1/2 cm of DCIS also identified. Patient completed radiation therapy. There was no indication for chemotherapy. Additionally no clear evidence supporting adjuvant hormone therapy. This was discussed at the patient's previous visits with , pros and cons were reviewed. Appropriately the patient elected to defer adjuvant hormone therapy. Herb presents today for routine surveillance visit. Also to review results of thorax CT, she has a pulmonary nodule we have been watching. Herb has no new complaints on exam today. Overall feeling quite well. She remains very busy working in a [employer]. No worsening shortness of breath. No worsening or change in her chronic cough. She has not had any recent lung infections. No hospitalizations. She does self-breast exams she has not noticed any changes. No skin changes, lumps or bumps, nipple discharge. No new pain. No new headaches. Unfortunately the patient remains an every day smoker. She has COPD and admits to shortness of breath also chronic cough. Her co workers all smoke and recently have all quit, herb is trying to quit. Past Medical History The patient's past medical history is significant for: 1) left breast infiltrating ductal carcinoma. Stage I A (T1mi, N0,M0). Diagnosis/surgery: 02/04/2017. Left breast excisional biopsy. Pathology confirming well-differentiated ductal carcinoma measuring 1 mm in greatest diameter. [place] histological score was 4 of 9 (grade 1) negative for LV I. Surgical margins clear her to than 10 millimeters in all directions. Immunostains on the invasive compounded were ER and [place] positive at 100% and 100% respectively HER-2 was 1+. Associated DCIS was identified measuring 25 mm in greatest diameter cribriform pattern and low nuclear grade rare microcalcifications but no necrosis. Closest Surgical margins 1 mm from the superior. 03/14/2017. Reexcision with sentinel node procedure. Reexcised breast tissue measuring 35 x 34 x 12 mm without evidence of DCIS or invasive disease. 3 sentinel lymph nodes identified all negative for disease. Clinical staging workup: 12/13/2016 bilateral screening mammogram: Breast density noted be fibroglandular. In the left breast 4:00 middle depth cluster of heterogeneous punctate calcifications noted. No other masses calcifications or findings were seen in either breast. 12/26/2016 diagnostic mammogram: Persistent cluster of amorphous heterogeneous indistinct punctate calcifications left breast 4 o'clock position middle depth. 03/07/2017: CT chest with contrast. Solitary 5 mm nodule posterior left upper lobe indeterminate. Patient will have a repeat CT scan already scheduled for August 2017 per NCCN guidelines following the algorithm for primary lung cancer screening. Patient has a significant tobacco history. Baseline tumor markers: 02/27/2017 reporting a CEA 4.6 and CA 27.29 normal at 27. Prognosis: SEER data base predicts approximate 5 year overall survival at ~97%. [email or web address] tool predicintg a 5 and 10 year overall survival at 97 and 92% respectively. Treatment plan: Radiation therapy followed by +/- adjuvant hormone therapy. 04/11/2017. Echocardiogram reporting an EF of 65-70%. 04/11/2017. Bone densities showing no evidence of osteopenia or osteoporosis. 2) hypercholesterolemia. 3) COPD/asthma. Home Medications and Allergies Home Medications Medication Instructions Recorded Confirmed Type ibuprofen 400 mg PO PRN PRN #0 02/26/17 History potassium chloride 10 meq PO EVERY OTHER DAY #0 02/26/17 History sertraline 100 mg PO Q DAY #90 tab 10/22/17 Rx albuterol sulfate [Ventolin HFA] 1 - 2 puff INH Q4HP PRN #8 gm 11/25/17 Rx cyclobenzaprine 10 mg tablet 10 mg PO HS #30 tab 03/12/18 Rx simvastatin 20 mg tablet 20 mg PO HS #90 tab 04/10/18 Rx Exam Narrative: non toxic appearing - Constitutional positive no acute distress - Routine HEENT Exam Eye: Absent: conjunctival icterus, scleral injection ENT: Present: mucous membranes moist, oropharynx clear - Routine Neck Exam Present: supple. Absent: lymphadenopathy - Routine Chest/Breast/Axilla Exam Axillae: Absent: lymphadenopathy, mass, tenderness - Routine Respiratory Exam Present: Clear to auscultation bilaterally, decreased breath sounds. Absent: rales, rhonchi, wheezes - Routine Cardiovascular Exam Present: RRR, S1, S2. Absent: murmur, gallop, rubs, JVD - Routine Abdominal Exam Present: soft, normoactive bowel sounds. Absent: tenderness, distended, organomegaly - Routine Extremities Exam Absent: edema, calf tenderness - Routine Skin Exam Present: intact, normal turgor. Absent: petechiae, rash - Routine Neurological Exam Present: alert, oriented X3 - Routine Psychiatric Exam Present: normal affect
[2018-05-22 13:12] VITALS: BP 147/88; PULSE 81; RESP 18; TEMP 36.7; O2SAT 96
--- NOTE | 2018-11-10 13:23 | ONC.APRN.PN ---
PN -Subjective Interval history: The patient is a 58 year old Female who is being seen in the clinic 11/10/2018 . Kailyn carries a diagnosis of stage I invasive breast cancer with an invasive compounded measuring only 1 mm. There was 2-1/2 cm of DCIS also identified. Patient completed radiation therapy, There was no indication for chemotherapy. Additionally no clear evidence supporting adjuvant hormone therapy. This was discussed at the patient's previous visits with Dr , pros and cons were reviewed. Appropriately the patient elected to defer adjuvant hormone therapy. Kailyn presents today for routine surveillance visit. Kailyn has no new complaints on exam today. Overall feeling quite well. She remains very busy working in local [employer]. No worsening shortness of breath. No worsening or change in her chronic cough. She has not had any recent lung infections. No hospitalizations. She does self-breast exams she has not noticed any changes. No skin changes, lumps or bumps, nipple discharge. No new pain. No new headaches. Routine annual bilateral screening mammogram was December 27, 2017. This mammogram was without evidence of malignancy with recommendation to repeat in 1 year. Patient states her primary care usually orders her mammogram for her. Unfortunately the patient remains an every day smoker. She has COPD and admits to shortness of breath also chronic cough. Kailyn states today I am not ready to quit smoking. She has a appt to see her PCP Dr Salmon next week. Past Medical History The patient's past medical history is significant for: 1) left breast infiltrating ductal carcinoma. Stage I A (T1mi, N0,M0). Diagnosis/surgery: 02/04/2017. Left breast excisional biopsy. Pathology confirming well-differentiated ductal carcinoma measuring 1 mm in greatest diameter. [place] histological score was 4 of 9 (grade 1) negative for LV I. Surgical margins clear her to than 10 millimeters in all directions. Immunostains on the invasive compounded were ER and [place] positive at 100% and 100% respectively HER-2 was 1+. Associated DCIS was identified measuring 25 mm in greatest diameter cribriform pattern and low nuclear grade rare microcalcifications but no necrosis. Closest Surgical margins 1 mm from the superior. 03/14/2017. Reexcision with sentinel node procedure. Reexcised breast tissue measuring 35 x 34 x 12 mm without evidence of DCIS or invasive disease. 3 sentinel lymph nodes identified all negative for disease. Clinical staging workup: 12/13/2016 bilateral screening mammogram: Breast density noted be fibroglandular. In the left breast 4:00 middle depth cluster of heterogeneous punctate calcifications noted. No other masses calcifications or findings were seen in either breast. 12/26/2016 diagnostic mammogram: Persistent cluster of amorphous heterogeneous indistinct punctate calcifications left breast 4 o'clock position middle depth. 03/07/2017: CT chest with contrast. Solitary 5 mm nodule posterior left upper lobe indeterminate. Patient will have a repeat CT scan already scheduled for August 2017 per NCCN guidelines following the algorithm for primary lung cancer screening. Patient has a significant tobacco history. Baseline tumor markers: 02/27/2017 reporting a CEA 4.6 and CA 27.29 normal at 27. Prognosis: SEER data base predicts approximate 5 year overall survival at ~97%. [email or web address] tool predicintg a 5 and 10 year overall survival at 97 and 92% respectively. Treatment plan: Radiation therapy followed by +/- adjuvant hormone therapy. 04/11/2017. Echocardiogram reporting an EF of 65-70%. 04/11/2017. Bone densities showing no evidence of osteopenia or osteoporosis. 2) hypercholesterolemia. 3) COPD/asthma. Home Medications and Allergies Home Medications Medication Instructions Recorded Confirmed Type ibuprofen 400 mg PO PRN PRN #0 02/26/17 08/15/18 History potassium chloride 10 meq PO EVERY OTHER DAY #0 02/26/17 08/15/18 History sertraline 100 mg PO Q DAY #90 tab 10/22/17 08/15/18 Rx albuterol sulfate [Ventolin HFA] 1 - 2 puff INH Q4HP PRN #8 gm 11/25/17 08/15/18 Rx cyclobenzaprine 10 mg tablet 10 mg PO HS #30 tab 08/15/18 Rx tiotropium bromide 18 mcg capsule 1 cap INHALATION DAILY #1 08/15/18 Rx with inhalation device inhalation simvastatin 20 mg tablet 20 mg PO HS #30 tab 08/26/18 Rx meloxicam 7.5 mg tablet 7.5 mg PO DAILY #30 tab 11/04/18 Rx Allergies Allergy/AdvReac Type Severity Reaction Status Date / Time No Known Drug Allergies Allergy Verified 08/15/18 10:59 Exam - Constitutional positive no acute distress - Routine HEENT Exam Eye: Present: conjunctivae pink. Absent: conjunctival icterus, scleral injection ENT: Present: mucous membranes moist, oropharynx clear - Routine Neck Exam Present: supple. Absent: lymphadenopathy - Routine Chest/Breast/Axilla Exam Breast: Absent: tenderness, induration, mass Axillae: Absent: lymphadenopathy, mass, tenderness - Routine Respiratory Exam Present: Clear to auscultation bilaterally, diminished air movement. Absent: decreased breath sounds, accessory muscle use, prolonged expiratory phase, rales, rhonchi, wheezes - Routine Cardiovascular Exam Present: RRR, S1, S2. Absent: murmur, gallop, rubs, JVD - Routine Abdominal Exam Present: soft, normoactive bowel sounds. Absent: tenderness, distended, organomegaly - Routine Extremities Exam Absent: edema, calf tenderness - Routine Skin Exam Present: intact, normal turgor. Absent: rash - Routine Neurological Exam Present: alert, oriented X3 - Routine Psychiatric Exam Present: normal affect Assessment and Plan (1) Breast cancer Current visit: No Status: Acute The patient is a 58-year-old female who carries a diagnosis of stage I invasive breast cancer, there was also DCIS identified. Reassuringly on exam today she has no clinical signs or symptoms to suggest disease recurrence. She will be due for her annual routine bilateral screening mammogram after December 27 of this year. Patient states her primary care provider usually orders, patient has an appointment next week with her primary care provider. (2) Pulmonary nodule, left Current visit: Yes Status: Acute Patient has known left upper lobe pulmonary nodule. Most recent imaging was May 09, 2018 at which time the nodule was unchanged from previous imaging. Recommendation is to demonstrate stability with [address] scan which will be due this April. I have discussed with the patient we will order this scan prior to her next appointment we will review results at her next appointment. (3) Current every day smoker Current visit: Yes Status: Acute I discussed with the patient she states she is not ready to quit smoking. I offered to the patient when she is ready to discuss smoking cessation I am happy to help her in any way possible. (4) Pulmonary emphysema Onset Date: 09/21/15 Current visit: No Status: None Due to smoking. Unfortunately patient remains a current every day smoker. See above.
--- NOTE | 2018-11-10 13:30 | P.PNONC_ITS ---
PN -Subjective Interval history: The patient is a 58 year old Female who is being seen in the clinic 11/10/2018 . Kailyn carries a diagnosis of stage I invasive breast cancer with an invasive compounded measuring only 1 mm. There was 2-1/2 cm of DCIS also identified. Patient completed radiation therapy, There was no indication for chemotherapy. Additionally no clear evidence supporting adjuvant hormone therapy. This was discussed at the patient's previous visits with Dr , pros and cons were reviewed. Appropriately the patient elected to defer adjuvant hormone therapy. Kailyn presents today for routine surveillance visit. Kailyn has no new complaints on exam today. Overall feeling quite well. She remains very busy working in local [employer]. No worsening shortness of breath. No worsening or change in her chronic cough. She has not had any recent lung infections. No hospitalizations. She does self-breast exams she has not noticed any changes. No skin changes, lumps or bumps, nipple discharge. No new pain. No new headaches. Routine annual bilateral screening mammogram was December 27, 2017. This mammogram was without evidence of malignancy with recommendation to repeat in 1 year. Patient states her primary care usually orders her mammogram for her. Unfortunately the patient remains an every day smoker. She has COPD and admits to shortness of breath also chronic cough. Kailyn states today I am not ready to quit smoking. She has a appt to see her PCP Dr Salmon next week. Past Medical History The patient's past medical history is significant for: 1) left breast infiltrating ductal carcinoma. Stage I A (T1mi, N0,M0). Diagnosis/surgery: 02/04/2017. Left breast excisional biopsy. Pathology confirming well- differentiated ductal carcinoma measuring 1 mm in greatest diameter. [place] histological score was 4 of 9 (grade 1) negative for LV I. Surgical margins clear her to than 10 millimeters in all directions. Immunostains on the invasive compounded were ER and [place] positive at 100% and 100% respectively HER-2 was 1+. Associated DCIS was identified measuring 25 mm in greatest diameter cribriform pattern and low nuclear grade rare microcalcifications but no necrosis. Closest Surgical margins 1 mm from the superior. 03/14/2017. Reexcision with sentinel node procedure. Reexcised breast tissue measuring 35 x 34 x 12 mm without evidence of DCIS or invasive disease. 3 sentinel lymph nodes identified all negative for disease. Clinical staging workup: 12/13/2016 bilateral screening mammogram: Breast density noted be fibroglandular. In the left breast 4:00 middle depth cluster of heterogeneous punctate calcifications noted. No other masses calcifications or findings were seen in either breast. 12/26/2016 diagnostic mammogram: Persistent cluster of amorphous heterogeneous indistinct punctate calcifications left breast 4 o'clock position middle depth. 03/07/2017: CT chest with contrast. Solitary 5 mm nodule posterior left upper lobe indeterminate. Patient will have a repeat CT scan already scheduled for August 2017 per NCCN guidelines following the algorithm for primary lung cancer screening. Patient has a significant tobacco history. Baseline tumor markers: 02/27/2017 reporting a CEA 4.6 and CA 27.29 normal at 27. Prognosis: SEER data base predicts approximate 5 year overall survival at ~97%. [email or web address] tool predicintg a 5 and 10 year overall survival at 97 and 92% respectively. Treatment plan: Radiation therapy followed by +/- adjuvant hormone therapy. 04/11/2017. Echocardiogram reporting an EF of 65-70%. 04/11/2017. Bone densities showing no evidence of osteopenia or osteoporosis. 2) hypercholesterolemia. 3) COPD/asthma. Home Medications and Allergies Home Medications Medication Instructions Recorded Confirmed Type ibuprofen 400 mg PO PRN PRN #0 02/26/17 08/15/18 History potassium chloride 10 meq PO EVERY OTHER DAY #0 02/26/17 08/15/18 History sertraline 100 mg PO Q DAY #90 tab 10/22/17 08/15/18 Rx albuterol sulfate [Ventolin HFA] 1 - 2 puff INH Q4HP PRN #8 gm 11/25/17 Rx cyclobenzaprine 10 mg tablet 10 mg PO HS #30 tab 08/15/18 Rx tiotropium bromide 18 mcg capsule 1 cap INHALATION DAILY #1 08/15/18 Rx with inhalation device inhalation simvastatin 20 mg tablet 20 mg PO HS #30 tab 08/26/18 Rx meloxicam 7.5 mg tablet 7.5 mg PO DAILY #30 tab 11/04/18 Rx Allergies Allergy/AdvReac Type Severity Reaction Status Date / Time No Known Drug Allergies Allergy Verified 08/15/18 10:59 Exam - Constitutional positive no acute distress - Routine HEENT Exam Eye: Present: conjunctivae pink. Absent: conjunctival icterus, scleral injection ENT: Present: mucous membranes moist, oropharynx clear - Routine Neck Exam Present: supple. Absent: lymphadenopathy - Routine Chest/Breast/Axilla Exam Breast: Absent: tenderness, induration, mass Axillae: Absent: lymphadenopathy, mass, tenderness - Routine Respiratory Exam Present: Clear to auscultation bilaterally, diminished air movement. Absent: decreased breath sounds, accessory muscle use, prolonged expiratory phase, rales , rhonchi, wheezes - Routine Cardiovascular Exam Present: RRR, S1, S2. Absent: murmur, gallop, rubs, JVD - Routine Abdominal Exam Present: soft, normoactive bowel sounds. Absent: tenderness, distended, organomegaly - Routine Extremities Exam Absent: edema, calf tenderness - Routine Skin Exam Present: intact, normal turgor. Absent: rash - Routine Neurological Exam Present: alert, oriented X3 - Routine Psychiatric Exam Present: normal affect Assessment and Plan (1) Breast cancer Current visit: No Status: Acute The patient is a 58-year-old female who carries a diagnosis of stage I invasive breast cancer, there was also DCIS identified. Reassuringly on exam today she has no clinical signs or symptoms to suggest disease recurrence. She will be due for her annual routine bilateral screening mammogram after December 27 of this year. Patient states her primary care provider usually orders , patient has an appointment next week with her primary care provider. (2) Pulmonary nodule, left Current visit: Yes Status: Acute Patient has known left upper lobe pulmonary nodule. Most recent imaging was May 09, 2018 at which time the nodule was unchanged from previous imaging. Recommendation is to demonstrate stability with [address] scan which will be due this April. I have discussed with the patient we will order this scan prior to her next appointment we will review results at her next appointment. (3) Current every day smoker Current visit: Yes Status: Acute I discussed with the patient she states she is not ready to quit smoking. I offered to the patient when she is ready to discuss smoking cessation I am happy to help her in any way possible. (4) Pulmonary emphysema Onset Date: 09/21/15 Current visit: No Status: None Due to smoking. Unfortunately patient remains a current every day smoker. See above.
[2018-11-10 13:39] VITALS: BP 151/88; PULSE 80; RESP 18; TEMP 36.2; O2SAT 96
[2019-04-29 15:11] VITALS: BP 138/95; PULSE 64; RESP 18; TEMP 36.8; O2SAT 92
--- NOTE | 2019-04-29 15:28 | ONC.PN ---
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 Lumpectomy in February 2017 followed by a repeat excision in February. 2. Adjuvant radiation. Interval history: The patient is a 58-year-old woman who returns today for follow-up. She has a history of a ER positive DCIS. At the time of surgery, 1 mm focus of invasive cancer was found. Her margins were very close and she underwent a repeat excision in February with sentinel nodes which were all negative. Postoperatively, she had radiation therapy but did not have any chemotherapy or hormone therapy. Today, she is feeling generally well. She has not noticed any changes in the breast or chest wall. No axillary adenopathy. She denies any new aches or pains. She has not had any worsening shortness of breath or cough. She does have some episodes of abdominal pain which has been present for several years. They occur infrequently and irregularly and last from a few minutes to a few hours. She has had a prior colonoscopy with no obvious etiology found. She has been thinking about cutting back on her smoking but does continue to smoke. She denies any other changes in her health. Past Medical History The patient's past medical history is significant for: 1) left breast infiltrating ductal carcinoma. Stage I A (T1mi, N0,M0). 2) hypercholesterolemia. 3) COPD/asthma. - Patient Self-Reported Symptoms SR Gastrointestinal issues: Abdominal pain Home Medications and Allergies Home Medications Medication Instructions Recorded Confirmed Type ibuprofen 400 mg PO PRN PRN #0 02/26/17 04/29/19 History potassium chloride 10 meq PO EVERY OTHER DAY #0 02/26/17 04/29/19 History cyclobenzaprine 10 mg tablet 10 mg PO HS #30 tab 08/15/18 04/29/19 Rx sertraline 100 mg tablet 50 mg PO Q DAY tab 11/14/18 04/29/19 History albuterol sulfate HFA 90 1 - 2 puff INHALATION Q4HP PRN #8 12/23/18 04/29/19 Rx mcg/actuation aerosol inhaler gm tiotropium bromide 18 mcg capsule 1 cap INHALATION DAILY #1 12/23/18 04/29/19 Rx with inhalation device inhalation meloxicam 7.5 mg tablet 7.5 mg PO DAILY #30 tab 01/27/19 04/29/19 Rx benzonatate 100 mg capsule 100 mg PO TID PRN #60 cap 02/09/19 04/29/19 Rx simvastatin 20 mg tablet 20 mg PO HS #30 tab 04/20/19 04/29/19 Rx Allergies Allergy/AdvReac Type Severity Reaction Status Date / Time No Known Drug Allergies Allergy Verified 02/27/19 15:22 Exam Vital signs: Vital Signs Temp Pulse Resp BP Pulse Ox 04/29/19 15:11 98.2 F 64 18 138/95 H 92 Intake and Output 04/28/19 04/29/19 04/29/19 23:59 07:59 15:59 Other: Weight 76.3 kg Patient Weight 04/29/19 23:59 Weight 76.3 kg - Constitutional positive no acute distress, positive average body habitus - Routine HEENT Exam Head: Present: normocephalic, atraumatic Eye: Present: EOMI, PERRL. Absent: conjunctival icterus, scleral injection ENT: Present: mucous membranes moist, oropharynx clear - Routine Neck Exam Present: supple. Absent: lymphadenopathy, thyromegaly - Routine Chest/Breast/Axilla Exam Comments: Incision on the left breast is well-healed. There are no suspicious masses on either side. No axillary adenopathy. - Routine Respiratory Exam Present: Clear to auscultation bilaterally. Absent: rales, wheezes - Routine Cardiovascular Exam Present: RRR, S1, S2. Absent: murmur - Routine Abdominal Exam Present: soft, normoactive bowel sounds. Absent: tenderness, organomegaly, mass - Routine Extremities Exam Absent: cyanosis, clubbing, edema - Routine Skin Exam Present: intact. Absent: petechiae, rash - Routine Neurological Exam Present: alert, oriented X3 - Routine Psychiatric Exam Present: normal affect, normal thought process Results - Imaging CT scan - chest: report reviewed (Stable 5 mm nodule with no evidence of progression. Presumed benign.) Assessment and Plan (1) Breast cancer Current visit: No Status: Acute The patient is a 58-year-old female who carries a diagnosis of stage I invasive breast cancer, there was also DCIS identified. She has no evidence of disease and is doing well. She will be due for a mammogram next December. (2) Pulmonary nodule, left Current visit: Yes Status: Acute Patient has known left upper lobe pulmonary nodule. Her CT scan has been stable for several years. She should continue with annual noncontrast CT to screen for the development of a lung cancer.
--- NOTE | 2019-05-06 11:27 | ONC.SCHED ---
Pt. placed on calendar (March 28 2020) to be scheduled for her annual CT and fup w/ Dr. Damon.
[2020-06-30 15:40] VITALS: BP 146/85; PULSE 78; RESP 18; TEMP 37.1; O2SAT 95
--- NOTE | 2020-06-30 15:50 | ONC.PN ---
PN -Subjective Interval history: ID/CC: 60 year old female with left sided DCIS and infiltrating ductal carcinoma, stage IA (T1mi, N0, M0) Previous treatment: 1. Lumpectomy in February 2017 followed by a repeat excision in February. 2. Adjuvant radiation. Interval history: The patient is a 60-year-old woman who returns today for follow-up. She has a history of a ER positive DCIS. At the time of lumpectomy in February 2017, a 1 mm focus of invasive cancer was found. Her margins were very close and she underwent a repeat excision in February 2017 with sentinel node biopsy and all were negative. Postoperatively, she had radiation therapy but did not have any chemotherapy or hormone therapy. She said she felt great. She does not have any pain problems. No shortness of breath, no chest pain, no abdominal pain, no diarrhea, no blood in the stool. He had mammogram on 03/16/2020 that showed no mammographic evidence of malignancy. A 1 year follow-up is recommended. - Patient Self-Reported Symptoms SR Gastrointestinal issues: Abdominal pain - Additional ROS All systems PM: reviewed and no additional remarkable complaints except as stated Home Medications and Allergies Home Medications Medication Instructions Recorded Confirmed Type potassium chloride 10 meq PO EVERY OTHER DAY #0 02/26/17 06/30/20 History cyclobenzaprine 10 mg tablet 10 mg PO HS #30 tab 08/15/18 06/30/20 Rx trazodone 50 mg tablet 50 mg PO BEDTIME PRN #30 tab 07/29/19 06/30/20 Rx tiotropium bromide 18 mcg capsule See Rx Instructions .ROUTE 08/17/19 06/30/20 Rx with inhalation device .COMPLEX #30 capsule simvastatin 20 mg tablet 20 mg PO BEDTIME #90 tab 03/07/20 06/30/20 Rx fluticasone propionate 110 1 puff INHALATION Q12H #12 gram 03/09/20 06/30/20 Rx mcg/actuation HFA aerosol inhaler albuterol sulfate 90 mcg/actuation 2 puff INHALATION Q4-6H PRN #18 05/26/20 06/30/20 Rx aerosol inhaler gram Allergies Allergy/AdvReac Type Severity Reaction Status Date / Time No Known Drug Allergies Allergy Verified 06/13/20 17:05 Exam Vital signs: Last Vital Signs Temp 98.8 F 06/30/20 15:40 Pulse 78 06/30/20 15:40 Resp 18 06/30/20 15:40 BP 146/85 H 06/30/20 15:40 Pulse Ox 95 06/30/20 15:40 - Constitutional positive no acute distress, positive average body habitus, positive cooperative - Routine HEENT Exam Head: Present: normocephalic, atraumatic Eye: Present: EOMI, PERRL, normal accommodation. Absent: conjunctival icterus - Routine Neck Exam Present: supple. Absent: lymphadenopathy, thyromegaly - Routine Chest/Breast/Axilla Exam Chest wall exam standard: Absent: tenderness Comments: Breast exam deferred. She just had mammogram - Routine Respiratory Exam Present: Clear to auscultation bilaterally. Absent: wheezes - Routine Cardiovascular Exam Present: RRR, S1, S2. Absent: murmur, gallop - Routine Abdominal Exam Present: soft. Absent: organomegaly - Routine Extremities Exam Absent: edema - Routine Neurological Exam Present: alert, oriented X3, CN II-XII intact. Absent: sensory deficit, motor deficit - Routine Psychiatric Exam Present: normal affect Assessment and Plan (1) Breast cancer Ms Benjamin is a 60 year old female with left sided DCIS and infiltrating ductal carcinoma, stage IA (T1mi, N0, M0). She underwent lumpectomy in February 2017 followed by a repeat excision in February 2020 for margin clearance. She underwent adjuvant radiation. No adjuvant chemotherapy or endocrine therapy. Today I reviewed the mammogram from March 05 the patient. No mammographic evidence malignancy. Talked with her that I will continue current active surveillance. Patient's mammogram is due in February 2021. After the mammogram I will see the patient for follow-up visit. (2) Pulmonary nodule, left Patient has known left upper lobe pulmonary nodule. Her CT scan has been stable for several years. She should continue with annual noncontrast CT to screen for the development of a lung cancer. Her next scheduled CT chest will be in February of 2021. Will follow-up the results when she comes back for follow-up visit.
[2021-03-17 10:37] LABS: Add Manual Diff / Slide Review NO; Basophils Absolute Auto 100 /uL (0-100); Basophils Percent Auto 0.9 % (0-2); Eosinophils Absolute Auto 200 /uL (0-450); Eosinophils Percent Auto 2.7 % (2-4); Hematocrit 49.3 % (36-46); Hemoglobin 16.4 g/dL (12.0-16.0); Lymphocytes Absolute Auto 2500 /uL (1100-4500); Lymphocytes Percent Auto 29.7 % (25-40); Mean Corpuscular HGB Conc 33.2 % (30-36); Mean Corpuscular Volume 87.4 fL (80-100); Monocytes Absolute Auto 600 /uL (0-900); Monocytes Percent Auto 6.5 % (3-14); Neutrophils Absolute Auto 5100 /uL (1500-7000); Neutrophils Percent Auto 60.2 % (50-75); Platelet Count 213 X10^3/uL (150-400); Red Blood Cell Count 5.64 X10^6/uL (4.0-5.2); Red Cell Distribution Width 14.2 % (11.6-14.8); White Blood Cell Count 8.5 X10^3/uL (4.5-11.0)
[2021-03-17 10:45] LABS: Alanine Aminotransferase 31 IU/L (<35); Albumin 4.4 g/dL (3.5-5.0); Albumin Globulin Ratio 1.5 (1.0-2.8); Alkaline Phosphatase 65 U/L (38-126); Aspartate Aminotransferase 37 IU/L (14-36); BUN Creatinine Ratio 21.6 (6-22); Bilirubin Total 0.4 mg/dL (0.2-1.3); Blood Urea Nitrogen 16 mg/dL (7-17); Calcium 9.7 mg/dL (8.4-10.2); Carbon Dioxide 28 mmol/L (22-32); Chloride 104 mmol/L (98-107); Estimated Glomerular Filt Rate > 60.0 mL/min (>60); Globulin 2.9 g/dL (1.7-4.1); Glucose 107 mg/dL (80-110); HEMOLYSIS 19 (0-50); Potassium 3.7 mmol/L (3.4-5.1); Sodium 140 mmol/L (137-145); Total Protein 7.3 g/dL (6.3-8.2)
[2021-03-23 13:06] VITALS: BP 161/106; PULSE 75; RESP 16; TEMP 37; O2SAT 96
--- NOTE | 2021-03-23 13:07 | P.PNONC_ITS ---
PN -Subjective Interval history: ID/CC: 60 year old female with left sided DCIS and infiltrating ductal carcinoma, stage IA (T1mi, N0, M0) Previous treatment: 1. Lumpectomy in February 2017 followed by a repeat excision in February. 2. Adjuvant radiation. Interval history: The patient is a 60-year-old woman who returns today for follow-up. She has a history of a ER positive DCIS. At the time of lumpectomy in February 2017, a 1 mm focus of invasive cancer was found. Her margins were very close and she underwent a repeat excision in February 2017 with sentinel node biopsy and all were negative. Postoperatively, she had radiation therapy but did not have any chemotherapy or hormone therapy. On 03/17/2021, patient underwent screening mammogram. The mammogram showed no evidence of malignancy. A 1 year screening mammogram is recommended. Patient also underwent CT chest without contrast on the same day. It showed overall stable examination. No suspicious pulmonary nodule or progressive changes. Clinically, patient said that she has been doing fine. She does not have any new signs or symptoms. However she admitted that she still smoking every day. - Patient Self-Reported Symptoms SR ears, nose, mouth, throat issues: Ears ringing, Congestion SR respiratory issues: Shortness of breath, Mucous SR Gastrointestinal issues: Abdominal pain SR Musculoskeletal issues: Muscle pain or cramps - Additional ROS All systems PM: reviewed and no additional remarkable complaints except as stated Home Medications and Allergies Home Medications Medication Instructions Recorded Confirmed Type potassium chloride 10 meq PO EVERY OTHER DAY #0 02/26/17 03/23/21 History cyclobenzaprine 10 mg tablet 10 mg PO HS #30 tab 08/15/18 03/23/21 Rx trazodone 50 mg tablet 50 mg PO BEDTIME PRN #30 tab 07/29/19 03/23/21 Rx fluticasone propionate 110 1 puff INHALATION Q12H #12 gram 07/05/20 03/23/21 Rx mcg/actuation HFA aerosol inhaler ciprofloxacin HCl 500 mg tablet 500 mg PO BID #28 tab 08/02/20 03/23/21 Rx tiotropium bromide 18 mcg capsule 1 cap INHALATION DAILY #30 cap 08/08/20 03/23/21 Rx with inhalation device albuterol sulfate 90 mcg/actuation 2 puff INHALATION Q4-6H PRN #18 g 09/29/20 03/23/21 Rx aerosol inhaler simvastatin 20 mg tablet 20 mg PO BEDTIME #90 tab 03/16/21 03/23/21 Rx albuterol sulfate 2.5 mg INHALATION QID PRN #120 vial 03/23/21 03/23/21 Rx Allergies Allergy/AdvReac Type Severity Reaction Status Date / Time No Known Drug Allergies Allergy Verified 08/01/20 14:24 Exam Vital signs: Vital Signs Temp Pulse Resp BP Pulse Ox 03/23/21 13:06 98.6 F 75 16 161/106 H 96 Intake and Output 03/22/21 03/23/21 03/23/21 23:59 07:59 15:59 Other: Weight 77 kg Patient Weight 03/23/21 23:59 Weight 77 kg Narrative: ECOG 1 Vitals above reviewed Constitutional: well developed, and well nourished, and well groomed, not in any acute respiratory distress, pleasant and cooperative. HEENT: NCAT, EOMI, PERRLA. Anicteric sclera. Neck: Supple and symmetrical, no palpable masses. No palpable thyromegaly. Respiratory: No use of accessory muscles. Decreased breathing sound bilaterally. Cardiovascular: RRR, S1 and S2 normal, no M/G/R. No edema of lower extremities. Abdomen: Soft, NTND, no palpable masses. No palpable hepatosplenomegaly. No hernia. Lymphatic: no palpable palpable lymph nodes in the neck, or axillae Musculoskeletal: normal gait and station Neurological: CN II-XII grossly intact. No focal motor or sensory deficit. Psychiatric: Normal judgment and insight. AOx3. Normal memory (recent and remote). Normal mood and affect. Results - Labs Laboratory Last Values WBC 8.5 X10^3/uL (4.5-11.0) 03/17/21 10:16 RBC 5.64 X10^6/uL (4.0-5.2) H 03/17/21 10:16 Hgb 16.4 g/dL (12.0-16.0) H 03/17/21 10:16 Hct 49.3 % (36-46) H 03/17/21 10:16 MCV 87.4 fL (80-100) 03/17/21 10:16 MCH 29.0 PG (26-34) 03/17/21 10:16 MCHC 33.2 % (30-36) 03/17/21 10:16 RDW 14.2 % (11.6-14.8) 03/17/21 10:16 Plt Count 213 X10^3/uL (150-400) 03/17/21 10:16 Neut % (Auto) 60.2 % (50-75) 03/17/21 10:16 Lymph % (Auto) 29.7 % (25-40) 03/17/21 10:16 [place] % (Auto) 6.5 % (3-14) 03/17/21 10:16 Eos % (Auto) 2.7 % (2-4) 03/17/21 10:16 Baso % (Auto) 0.9 % (0-2) 03/17/21 10:16 Neut # (Auto) 5100 /uL (2136-9970) 03/17/21 10:16 Lymph # (Auto) 2500 /uL (6546-1150) 03/17/21 10:16 [place] # (Auto) 600 /uL (0-900) 03/17/21 10:16 Eos # (Auto) 200 /uL (0-450) 03/17/21 10:16 Baso # (Auto) 100 /uL (0-100) 03/17/21 10:16 Sodium 140 mmol/L (137-145) 03/17/21 10:16 Potassium 3.7 mmol/L (3.4-5.1) 03/17/21 10:16 Chloride 104 mmol/L (98-107) 03/17/21 10:16 Carbon Dioxide 28 mmol/L (22-32) 03/17/21 10:16 BUN 16 mg/dL (7-17) 03/17/21 10:16 Creatinine 0.74 mg/dL (0.52-1.04) 03/17/21 10:16 Estimated GFR > 60.0 mL/min (>60) 03/17/21 10:16 BUN/Creatinine Ratio 21.6 (6-22) 03/17/21 10:16 Glucose 107 mg/dL (80-110) 03/17/21 10:16 Calcium 9.7 mg/dL (8.4-10.2) 03/17/21 10:16 Total Bilirubin 0.4 mg/dL (0.2-1.3) 03/17/21 10:16 AST 37 IU/L (14-36) H 03/17/21 10:16 ALT 31 IU/L (<35) 03/17/21 10:16 Alkaline Phosphatase 65 U/L (38-126) 03/17/21 10:16 Total Protein 7.3 g/dL (6.3-8.2) 03/17/21 10:16 Albumin 4.4 g/dL (3.5-5.0) 03/17/21 10:16 Globulin 2.9 g/dL (1.7-4.1) 03/17/21 10:16 Albumin/Globulin Ratio 1.5 (1.0-2.8) 03/17/21 10:16 Assessment and Plan (1) Breast cancer Overview: Ms Benjamin is a 60 year old female with left sided DCIS and infiltrating ductal carcinoma, stage IA (T1mi, N0, M0). She underwent lumpectomy in February 2017 followed by a repeat excision in February 2027 for margin clearance. She underwent adjuvant radiation. No adjuvant chemotherapy or endocrine therapy. Assessment: Today I reviewed the mammogram from March 16, 2021. No mammographic evidence leximau cassius. Plan: Mammogram in one year RTC after mammogram (2) Pulmonary nodule, left She is a long-term heavy smoker. She is still smoking every day. Patient has known left upper lobe pulmonary nodule. Her CT scan has been stable for several years. Today, I reviewed the CT scan from 03/16/2021. It showed no suspicious pulmonary nodules. However, patient continued to smoke. I think it is indicated to continue the annual CT screening. Patient voiced understanding and also expressed her desire to stop smoking. Plan: Smoking cessation CT chest wo contrast in one year RTC after CT scan, CBC, CMP.
--- NOTE | 2022-01-26 15:34 | ONC.SCHED ---
Submitted PA request for CT scan via faxed form with clinicals attached.
[2022-03-28 18:03] LABS: Add Manual Diff / Slide Review NO; Basophils Absolute Auto 100 /uL (0-100); Eosinophils Absolute Auto 200 /uL (0-450); Eosinophils Percent Auto 2.2 % (2-4); Hematocrit 42.7 % (36-46); Hemoglobin 14.5 g/dL (12.0-16.0); Lymphocytes Absolute Auto 2900 /uL (1100-4500); Lymphocytes Percent Auto 30.7 % (25-40); Mean Corpuscular HGB Conc 34.1 % (30-36); Mean Corpuscular Hemoglobin 29.9 PG (26-34); Mean Corpuscular Volume 87.6 fL (80-100); Monocytes Absolute Auto 500 /uL (0-900); Monocytes Percent Auto 5.3 % (3-14); Neutrophils Absolute Auto 5800 /uL (1500-7000); Neutrophils Percent Auto 60.8 % (50-75); Platelet Count 217 X10^3/uL (150-400); Red Blood Cell Count 4.87 X10^6/uL (4.0-5.2); Red Cell Distribution Width 13.6 % (11.6-14.8); White Blood Cell Count 9.5 X10^3/uL (4.5-11.0)
[2022-03-28 18:30] LABS: Alanine Aminotransferase 33 IU/L (<35); Albumin 4.2 g/dL (3.5-5.0); Albumin Globulin Ratio 1.5 (1.0-2.8); Alkaline Phosphatase 56 U/L (38-126); Aspartate Aminotransferase 34 IU/L (14-36); BUN Creatinine Ratio 16.5 (6-22); Bilirubin Total 0.3 mg/dL (0.2-1.3); Blood Urea Nitrogen 17 mg/dL (7-17); Carbon Dioxide 26 mmol/L (22-32); Chloride 107 mmol/L (98-107); Estimated Glomerular Filt Rate > 60 mL/min (>60); Globulin 2.8 g/dL (1.7-4.1); Glucose 83 mg/dL (80-110); HEMOLYSIS < 15 (0-50); Potassium 3.4 mmol/L (3.4-5.1); Sodium 141 mmol/L (137-145)
[2022-03-29 11:20] VITALS: BP 160/84; PULSE 85; RESP 20; TEMP 36.5; O2SAT 98
--- NOTE | 2022-03-29 11:28 | P.PNONC_ITS ---
PN -Subjective - Date of Visit Date of visit: 03/29/22 Chief Complaint: 61 year old female with left sided DCIS and infiltrating ductal carcinoma, stage IA (T1mi, N0, M0), and right upper lung nodule here for scheduled follow up visit. Interval history: The patient is a 61-year-old woman who returns today for follow-up. She has a history of ER positive DCIS. At the time of lumpectomy in February 2017, a 1 mm focus of invasive cancer was found. Her margins were very close and she underwent a repeat excision in February 2017 with sentinel node biopsy and all were negative. Postoperatively, she had radiation therapy but did not have any chemotherapy or hormone therapy. Patient was also found to have a right upper lung 5 mm pulmonary nodule and has been on active surveillance. Clinically, patient said that she has been doing fine. She does not have any new signs or symptoms. Again, she admitted to continued smoking. On 03/19/2022, patient underwent CT chest without contrast that showed stable 5 mm right upper lobe pulmonary nodule and no new pulmonary nodules. Twelve month follow-up CT recommended. On the same day, patient also underwent screening mammogram that showed no mammographic evidence of malignancy. A 1 year screening mammogram is recommended. Previous treatment: 1. Lumpectomy in February 2017 followed by a repeat excision in February. 2. Adjuvant radiation. - Patient Self-Reported Symptoms SR ears, nose, mouth, throat issues: Ears ringing, Congestion SR respiratory issues: Shortness of breath, Mucous SR Gastrointestinal issues: Abdominal pain SR Musculoskeletal issues: Muscle pain or cramps - ROS All Systems: reviewed and no additional remarkable complaints except as stated Home Medications and Allergies Home Medications Medication Instructions Recorded Confirmed Type potassium chloride 10 mEq 10 meq PO EVERY OTHER DAY #0 02/26/17 01/30/22 History capsule,extended release trazodone 50 mg tablet 50 mg PO BEDTIME PRN #30 tab 07/29/19 01/30/22 Rx fluticasone propionate 110 1 puff INHALATION Q12H #12 gram 07/05/20 01/30/22 Rx mcg/actuation HFA aerosol inhaler (Flovent HFA) tamsulosin 0.4 mg capsule (Flomax) 0.4 mg PO BEDTIME #7 cap 04/13/21 01/30/22 Rx tiotropium bromide 18 mcg capsule 1 cap INHALATION DAILY #30 cap 07/12/21 01/30/22 Rx with inhalation device (Spiriva with HandiHaler) albuterol sulfate 90 mcg/actuation 2 puff INHALATION Q4-6H PRN #25.5 g 10/31/21 01/30/22 Rx aerosol inhaler amlodipine 2.5 mg tablet 2.5 mg PO DAILY #30 tab 12/19/21 01/30/22 Rx cyclobenzaprine 10 mg tablet 10 mg PO HS #30 tab 12/19/21 01/30/22 Rx albuterol sulfate 2.5 mg (3 mL) INHALATION QID PRN 01/22/22 01/30/22 Rx #120 vial simvastatin 20 mg tablet 20 mg PO BEDTIME #90 tab 03/24/22 Rx Allergies Allergy/AdvReac Type Severity Reaction Status Date / Time No Known Drug Allergies Allergy Verified 01/30/22 11:29 Exam Vital signs: Vital Signs Temp Pulse Resp BP Pulse Ox 03/29/22 11:20 97.7 F 85 20 160/84 H 98 Intake and Output 03/28/22 03/29/22 03/29/22 23:59 07:59 15:59 Other: Weight 77 kg Patient Weight 03/29/22 23:59 Weight 77 kg Narrative: ECOG 1 Vitals above reviewed Constitutional: well developed, and well nourished, and well groomed, not in any acute respiratory distress, pleasant and cooperative. HEENT: NCAT, EOMI, PERRLA. Anicteric sclera. Neck: Supple and symmetrical, no palpable masses. No palpable thyromegaly. Respiratory: No use of accessory muscles. Decreased breathing sound bila terally. Scattered wheezes heard over in the left upper back. Cardiovascular: RRR, S1 and S2 normal, no M/G/R. No edema of lower extremities. Abdomen: Soft, NTND, no palpable masses. No palpable hepatosplenomegaly. No hernia. Lymphatic: no palpable palpable lymph nodes in the neck, or axillae Musculoskeletal: normal gait and station Neurological: CN II-XII grossly intact. No focal motor or sensory deficit. Psychiatric: Normal judgment and insight. AOx3. Normal memory (recent and remote). Normal mood and affect. Breast Exams: Left breast is status post lumpectomy. Surgical wounds completely healed. No palpable lumps, no palpable lymph nodes in the left axilla; The right breast is without nipple retraction, no skin changes, no palpable lumps, no palpable lymph nodes in the right axilla. All physical examinations were chaperoned Results - Labs Laboratory Last Values WBC 9.5 X10^3/uL (4.5-11.0) 03/28/22 17:35 RBC 4.87 X10^6/uL (4.0-5.2) 03/28/22 17:35 Hgb 14.5 g/dL (12.0-16.0) 03/28/22 17:35 Hct 42.7 % (36-46) 03/28/22 17:35 MCV 87.6 fL (80-100) 03/28/22 17:35 MCH 29.9 PG (26-34) 03/28/22 17:35 MCHC 34.1 % (30-36) 03/28/22 17:35 RDW 13.6 % (11.6-14.8) 03/28/22 17:35 Plt Count 217 X10^3/uL (150-400) 03/28/22 17:35 Neut % (Auto) 60.8 % (50-75) 03/28/22 17:35 Lymph % (Auto) 30.7 % (25-40) 03/28/22 17:35 [place] % (Auto) 5.3 % (3-14) 03/28/22 17:35 Eos % (Auto) 2.2 % (2-4) 03/28/22 17:35 Baso % (Auto) 1.0 % (0-2) 03/28/22 17:35 Neut # (Auto) 5800 /uL (8924-7475) 03/28/22 17:35 Lymph # (Auto) 2900 /uL (0819-5516) 03/28/22 17:35 [place] # (Auto) 500 /uL (0-900) 03/28/22 17:35 Eos # (Auto) 200 /uL (0-450) 03/28/22 17:35 Baso # (Auto) 100 /uL (0-100) 03/28/22 17:35 Sodium 141 mmol/L (137-145) 03/28/22 17:35 Potassium 3.4 mmol/L (3.4-5.1) 03/28/22 17:35 Chloride 107 mmol/L (98-107) 03/28/22 17:35 Carbon Dioxide 26 mmol/L (22-32) 03/28/22 17:35 BUN 17 mg/dL (7-17) 03/28/22 17:35 Creatinine 1.03 mg/dL (0.52-1.04) 03/28/22 17:35 Estimated GFR > 60 mL/min (>60) 03/28/22 17:35 BUN/Creatinine Ratio 16.5 (6-22) 03/28/22 17:35 Glucose 83 mg/dL (80-110) 03/28/22 17:35 Calcium 9.0 mg/dL (8.4-10.2) 03/28/22 17:35 Total Bilirubin 0.3 mg/dL (0.2-1.3) 03/28/22 17:35 AST 34 IU/L (14-36) 03/28/22 17:35 ALT 33 IU/L (<35) 03/28/22 17:35 Alkaline Phosphatase 56 U/L (38-126) 03/28/22 17:35 Total Protein 7.0 g/dL (6.3-8.2) 03/28/22 17:35 Albumin 4.2 g/dL (3.5-5.0) 03/28/22 17:35 Globulin 2.8 g/dL (1.7-4.1) 03/28/22 17:35 Albumin/Globulin Ratio 1.5 (1.0-2.8) 03/28/22 17:35 Assessment and Plan (1) Breast cancer Ms Benjamin is a 61 year old female with left sided DCIS and infiltrating ductal carcinoma, stage IA (T1mi, N0, M0). She underwent lumpectomy in February 2017 followed by a repeat excision in February 2027 for margin clearance. She underwent adjuvant radiation. No adjuvant chemotherapy or endocrine therapy. Assessment: Today I reviewed the mammogram from March 19, 2022. No mammographic evidence m alignancy. Plan: Mammogram in one year RTC after mammogram (2) Pulmonary nodules She is a long-term heavy smoker. She is still smoking every day. I reviewed the available [employer] CT of the chest images myself dated back to April 2018. It has shown bilateral upper lung tiny nodules measuring 4-[address] scan has been stable for the past several years. Today, I reviewed the CT scan from 03/19/2022. It showed no new pulmonary nodules. The previous known pulmonary nodules remain stable. Patient admitted to smoking. I encouraged her to consider stopping smoking. She said when she comes back hopefully she will completely off smoking. Plan: Smoking cessation CT chest wo contrast in one year RTC after CT scan, CBC, CMP.
--- NOTE | 2023-03-05 17:09 | ONC.SCHED ---
CT chest w/o auth has now been submitted with [employer] insurance. It's pending.
--- NOTE | 2023-03-07 13:13 | ONC.SCHED ---
CT is approved and in ARM/scanning. I called patient and transferred her to DI to schedule.
[2023-04-01 07:15] LABS: Add Manual Diff / Slide Review NO; Basophils Absolute Auto 100 /uL (0-100); Basophils Percent Auto 1.1 % (0-2); Eosinophils Absolute Auto 300 /uL (0-450); Eosinophils Percent Auto 3.1 % (2-4); Hematocrit 43.5 % (36-46); Hemoglobin 14.9 g/dL (12.0-16.0); Lymphocytes Absolute Auto 2900 /uL (1100-4500); Lymphocytes Percent Auto 33.8 % (25-40); Mean Corpuscular HGB Conc 34.3 % (30-36); Mean Corpuscular Hemoglobin 29.8 PG (26-34); Mean Corpuscular Volume 86.8 fL (80-100); Monocytes Absolute Auto 500 /uL (0-900); Monocytes Percent Auto 5.7 % (3-14); Neutrophils Absolute Auto 4900 /uL (1500-7000); Neutrophils Percent Auto 56.3 % (50-75); Platelet Count 238 X10^3/uL (150-400); Red Blood Cell Count 5.01 X10^6/uL (4.0-5.2); White Blood Cell Count 8.7 X10^3/uL (4.5-11.0)
[2023-04-01 07:31] LABS: Alanine Aminotransferase 25 IU/L (<35); Albumin 4.1 g/dL (3.5-5.0); Albumin Globulin Ratio 1.4 (1.0-2.8); Alkaline Phosphatase 64 U/L (38-126); Aspartate Aminotransferase 26 IU/L (14-36); BUN Creatinine Ratio 22.2 (6-22); Bilirubin Total 0.6 mg/dL (0.2-1.3); Blood Urea Nitrogen 16 mg/dL (7-17); Calcium 8.7 mg/dL (8.4-10.2); Carbon Dioxide 28 mmol/L (22-32); Chloride 106 mmol/L (98-107); Estimated Glomerular Filt Rate > 60 mL/min (>60); Globulin 2.9 g/dL (1.7-4.1); Glucose 98 mg/dL (80-110); HEMOLYSIS 15 (0-50); Potassium 3.7 mmol/L (3.4-5.1); Sodium 138 mmol/L (137-145)
[2023-04-01 11:40] VITALS: BP 162/93; PULSE 70; RESP 18; TEMP 36.7; O2SAT 98
--- NOTE | 2023-04-01 11:50 | P.PNONC_ITS ---
PN -Subjective - Date of Visit Date of visit: 04/01/23 Chief Complaint: 61 year old female with left sided DCIS and infiltrating ductal carcinoma, stage IA (T1mi, N0, M0), and right upper lung nodule here for scheduled follow up visit. Interval history: The patient is a 62-year-old woman who returns today for follow-up. She has a history of ER positive DCIS. At the time of lumpectomy in February 2017, a 1 mm focus of invasive cancer was found. Her margins were very close and she underwent a repeat excision in February 2017 with sentinel node biopsy and all were negative. Postoperatively, she had radiation therapy but did not have any chemotherapy or hormone therapy. Patient was also found to have a right upper lung 5 mm pulmonary nodule and has been on active surveillance. Clinically, patient said that she has been doing fine. She does not have any new signs or symptoms. Again, she admitted to continued smoking, but much less. On 03/20/2023, patient underwent screening CT chest without contrast. It showed stable benign right upper lobe pulmonary nodule and no new lung nodules. Continued annual low-dose chest CT screening as non as the patient meets established criteria is recommended. Lung rads category 1. Patient also underwent screening mammogram on 03/20/2023 that showed no mammographic evidence of malignancy. A 1 year screening mammogram is recommended. Previous treatment: 1. Lumpectomy in February 2017 followed by a repeat excision in February. 2. Adjuvant radiation. - Patient Self-Reported Symptoms SR ears, nose, mouth, throat issues: Ears ringing, Congestion SR respiratory issues: Shortness of breath, Difficulty breathing SR Cardiovascular issues: Shortness of breath with activity or lying flat SR Gastrointestinal issues: Poor or no appetite SR Musculoskeletal issues: Muscle weakness SR Neuro issues: Numbness or tingling - ROS All Systems: reviewed and no additional remarkable complaints except as stated Home Medications and Allergies Home Medications Medication Instructions Recorded Confirmed Type trazodone 50 mg tablet 50 mg PO BEDTIME PRN insomnia #30 07/29/19 04/01/23 Rx tabs tiotropium bromide 18 mcg capsule 1 cap inhalation DAILY #30 caps 07/03/22 04/01/23 Rx with inhalation device (Spiriva with HandiHaler) amlodipine 2.5 mg tablet 2.5 mg PO DAILY #90 tabs 12/31/22 04/01/23 Rx simvastatin 20 mg tablet 20 mg PO BEDTIME #90 tabs 12/31/22 04/01/23 Rx cyclobenzaprine 10 mg tablet 10 mg PO HS #30 tabs 01/07/23 04/01/23 Rx fluticasone propionate 110 See Rx Instructions .Route 01/14/23 04/01/23 Rx mcg/actuation HFA aerosol inhaler .COMPLEX #12 grams albuterol sulfate 2.5 mg/3 mL See Rx Instructions .Route 01/21/23 04/01/23 Rx (0.083 %) solution for nebulization .COMPLEX #120 ea albuterol sulfate 90 mcg/actuation See Rx Instructions .Route 01/24/23 04/01/23 Rx aerosol inhaler .COMPLEX #25.5 grams Allergies Allergy/AdvReac Type Severity Reaction Status Date / Time No Known Drug Allergies Allergy Verified 12/31/22 09:48 Exam Vital signs: Vital Signs Temp Pulse Resp BP Pulse Ox 04/01/23 11:40 98.1 F 70 18 162/93 H 98 Intake and Output 03/31/23 04/01/23 04/01/23 23:59 07:59 15:59 Other: Weight 70 kg Patient Weight 04/01/23 23:59 Weight 70 kg Narrative: ECOG 1 Vitals above reviewed Constitutional: well developed, and well nourished, and well groomed, not in any acute respiratory distress, pleasant and cooperative. HEENT: NCAT, EOMI, PERRLA. Anicteric sclera. Neck: Supple and symmetrical, no palpable masses. No palpable thyromegaly. Respiratory: No use of accessory muscles. Decreased breathing sound bilaterally. No wheezes. Cardiovascular: RRR, S1 and S2 normal, no M/G/R. No edema of lower extremities. Abdomen: Soft, NTND, no palpable masses. No palpable hepatosplenomegaly. No hernia. Lymphatic: no palpable palpable lymph nodes in the neck, or axillae Musculoskeletal: normal gait and station Neurological: CN II-XII grossly intact. No focal motor or sensory deficit. Psychiatric: Normal judgment and insight. AOx3. Normal memory (recent and remote). Normal mood and affect. Breast Exams: Left breast is status post lumpectomy. Surgical wounds completely healed. No palpable lumps, no palpable lymph nodes in the left axilla; The right breast is without nipple retraction, no skin changes, no palpable lumps, no palpable lymph nodes in the right axilla. All physical examinations were chaperoned Results - Labs Laboratory Last Values WBC 8.7 X10^3/uL (4.5-11.0) 04/01/23 07:05 RBC 5.01 X10^6/uL (4.0-5.2) 04/01/23 07:05 Hgb 14.9 g/dL (12.0-16.0) 04/01/23 07:05 Hct 43.5 % (36-46) 04/01/23 07:05 MCV 86.8 fL (80-100) 04/01/23 07:05 MCH 29.8 PG (26-34) 04/01/23 07:05 MCHC 34.3 % (30-36) 04/01/23 07:05 RDW 14.0 % (11.6-14.8) 04/01/23 07:05 Plt Count 238 X10^3/uL (150-400) 04/01/23 07:05 Neut % (Auto) 56.3 % (50-75) 04/01/23 07:05 Lymph % (Auto) 33.8 % (25-40) 04/01/23 07:05 [place] % (Auto) 5.7 % (3-14) 04/01/23 07:05 Eos % (Auto) 3.1 % (2-4) 04/01/23 07:05 Baso % (Auto) 1.1 % (0-2) 04/01/23 07:05 Neut # (Auto) 4900 /uL (8927-2657) 04/01/23 07:05 Lymph # (Auto) 2900 /uL (4365-7060) 04/01/23 07:05 [place] # (Auto) 500 /uL (0-900) 04/01/23 07:05 Eos # (Auto) 300 /uL (0-450) 04/01/23 07:05 Baso # (Auto) 100 /uL (0-100) 04/01/23 07:05 Sodium 138 mmol/L (137-145) 04/01/23 07:05 Potassium 3.7 mmol/L (3.4-5.1) 04/01/23 07:05 Chloride 106 mmol/L (98-107) 04/01/23 07:05 Carbon Dioxide 28 mmol/L (22-32) 04/01/23 07:05 BUN 16 mg/dL (7-17) 04/01/23 07:05 Creatinine 0.72 mg/dL (0.52-1.04) 04/01/23 07:05 Estimated GFR > 60 mL/min (>60) 04/01/23 07:05 BUN/Creatinine Ratio 22.2 (6-22) H 04/01/23 07:05 Glucose 98 mg/dL (80-110) 04/01/23 07:05 Calcium 8.7 mg/dL (8.4-10.2) 04/01/23 07:05 Total Bilirubin 0.6 mg/dL (0.2-1.3) 04/01/23 07:05 AST 26 IU/L (14-36) 04/01/23 07:05 ALT 25 IU/L (<35) 04/01/23 07:05 Alkaline Phosphatase 64 U/L (38-126) 04/01/23 07:05 Total Protein 7.0 g/dL (6.3-8.2) 04/01/23 07:05 Albumin 4.1 g/dL (3.5-5.0) 04/01/23 07:05 Globulin 2.9 g/dL (1.7-4.1) 04/01/23 07:05 Albumin/Globulin Ratio 1.4 (1.0-2.8) 04/01/23 07:05 Assessment and Plan (1) Breast cancer Ms Benjamin is a 62 year old female with left sided DCIS and infiltrating ductal carcinoma, stage IA (T1mi, N0, M0). She underwent lumpectomy in February 2017 followed by a repeat excision in February 2027 for margin clearance. She underwent adjuvant radiation. No adjuvant chemotherapy or endocrine therapy. Assessment: Today I reviewed the mammogram from March 20, 2023. No mammographic evidence malignancy. Plan: Mammogram in one year RTC after mammogram (2) Pulmonary nodules She is a long-term heavy smoker. She is still smoking every day. I reviewed the available [facility] of the chest images myself dated back to April 2018. It has shown bilateral upper lung tiny nodules measuring 4-[address] scan has been stable for the past several years. Today, I reviewed the CT scan from 03/20/2023. It showed no new pulmonary nodules. The previous known pulmonary nodules remain stable. Patient admitted to smoking, but much less. I encouraged her to consider stopping smoking. Plan: Smoking cessation CT chest wo contrast in one year RTC after CT scan, CBC, CMP.
--- NOTE | 2023-04-01 12:02 | ONC.SCHED ---
Scheduling: This finance broker is requesting MD place orders for the patient.
--- NOTE | 2024-03-18 15:31 | ONC.SCHED ---
Spoke w/patient: she is agreeable to complete mammogram as scheduled and to nurse eval call re: results and FAHEEM
--- NOTE | 2024-04-02 17:26 | PC.NURSE ---
FAHEEM: message left for patient to call us back regarding FAHEEM.
== END ==
PROVIDERS: Family Provider Family Medicine; PCP Family Medicine; Visit Provider Internal Medicine Hematology & Oncology
DX: Z08 Encounter for follow-up examination after completed treatment for malignant neoplasm (principal); Z85.3 Personal history of malignant neoplasm of breast
CPT/HCPCS: 36415; 80053; 85025; 99214; 99215

== ENCOUNTER → 2024-04-17 14:05 | Outpatient (CLI) | payer OTHER, MEDICAID, SELFPAY ==
--- NOTE | 2024-04-17 14:06 | DI.CT.S_ITS ---
PROCEDURE: CT CHEST WO CON INDICATIONS: Pulmonary Nodule Follow Up TECHNIQUE: Noncontrast 5 mm thick sections acquired from the pulmonary apices to the posterior costophrenic angles. 1 mm lung window, 5 mm thick coronal and sagittal and 7 mm axial MIP reformats were then acquired. For radiation dose reduction, the following was used: automated exposure control, adjustment of mA and/or kV according to patient size. COMPARISON: [facility], CT, CT CHEST WO CON, 03/20/2023, 8:36. FINDINGS: Image quality: Diagnostic. Lower Neck: No enlarged lymph nodes. Thyroid: No thyroid nodules which require sonographic follow up, per consensus guidelines. Axillae: No enlarged lymph nodes. Chest Wall: Unremarkable. Bones: Unremarkable. Lungs and Pleura: Severe centrilobular emphysema. Stable right apical pulmonary nodule, image 62 series 3, 0.5 cm. No new or increasing pulmonary nodules. Heart: Heart size is normal. No pericardial effusion. Thoracic Vessels: The aorta and pulmonary arteries demonstrate normal size. Mediastinum and [place]: No enlarged lymph nodes. Esophagus: No wall thickening. No hiatal hernia. Upper Abdomen: Visualized upper abdomen solid organs and bowel loops appear normal. IMPRESSION: 1. Stable 5 mm right apical pulmonary nodule. 2. Severe emphysematous change. Comment: Recommend annual low-dose lung screen CT, next imaging in 12 months. Dictated by: Pete Thomas M.D. on 04/17/2024 at 16:17 Approved by: Pete Thomas M.D. on 04/17/2024 at 16:22
== END ==
LOC: CT 14:05
PROVIDERS: Family Provider Family Medicine; PCP Internal Medicine; Referring Provider Internal Medicine; Visit Provider Internal Medicine
DX: R91.8 Other nonspecific abnormal finding of lung field (principal); J43.2 Centrilobular emphysema
CPT/HCPCS: 71250

== ENCOUNTER → 2024-05-08 12:09 | Outpatient (CLI) | payer OTHER, MEDICAID, SELFPAY ==
[2024-05-08 13:18] LABS: Add Manual Diff / Slide Review NO; Basophils Absolute Auto 100 /uL (0-100); Basophils Percent Auto 0.7 % (0-2); Eosinophils Absolute Auto 500 /uL (0-450); Eosinophils Percent Auto 6.5 % (2-4); Hematocrit 44.6 % (36-46); Hemoglobin 15.1 g/dL (12.0-16.0); Lymphocytes Absolute Auto 2200 /uL (1100-4500); Lymphocytes Percent Auto 29.1 % (25-40); Mean Corpuscular HGB Conc 33.8 % (30-36); Mean Corpuscular Hemoglobin 29.3 PG (26-34); Mean Corpuscular Volume 86.6 fL (80-100); Monocytes Absolute Auto 500 /uL (0-900); Monocytes Percent Auto 6.5 % (3-14); Neutrophils Absolute Auto 4300 /uL (1500-7000); Neutrophils Percent Auto 57.2 % (50-75); Platelet Count 257 X10^3/uL (150-400); Red Blood Cell Count 5.15 X10^6/uL (4.0-5.2); Red Cell Distribution Width 13.7 % (11.6-14.8); White Blood Cell Count 7.5 X10^3/uL (4.5-11.0)
[2024-05-08 13:32] LABS: Alanine Aminotransferase 22 IU/L (<35); Albumin 4.3 g/dL (3.5-5.0); Albumin Globulin Ratio 1.5 (1.0-2.8); Alkaline Phosphatase 66 U/L (38-126); Aspartate Aminotransferase 25 IU/L (14-36); BUN Creatinine Ratio 13.2 (6-22); Bilirubin Total 0.6 mg/dL (0.2-1.3); Blood Urea Nitrogen 12 mg/dL (7-17); Calcium 9.3 mg/dL (8.4-10.2); Carbon Dioxide 29 mmol/L (22-32); Chloride 106 mmol/L (98-107); Cholesterol 182 mg/dL (140-199); Estimated Glomerular Filt Rate > 60 mL/min (>60); Globulin 2.8 g/dL (1.7-4.1); Glucose 97 mg/dL (80-110); HDL Cholesterol 62 mg/dL (40-60); HEMOLYSIS < 15 (0-50); LDL Cholesterol Calculated 99 mg/dL (<100); Potassium 4.1 mmol/L (3.4-5.1); Sodium 139 mmol/L (137-145); Total Protein 7.1 g/dL (6.3-8.2); Triglycerides 107 mg/dL (35-150)
== END ==
PROVIDERS: Family Provider Family Medicine; PCP Internal Medicine; Referring Provider Internal Medicine; Visit Provider Internal Medicine
DX: I10 Essential (primary) hypertension (principal); J44.9 Chronic obstructive pulmonary disease, unspecified; D58.2 Other hemoglobinopathies
CPT/HCPCS: 36415; 80053; 80061; 85025

== ENCOUNTER → 2024-11-26 14:16 | Outpatient (CLI) | payer MEDICARE, MEDICAID, SELFPAY ==
[2024-11-26 15:12] LABS: Alanine Aminotransferase 33 IU/L (<35); Albumin 4.6 g/dL (3.5-5.0); Albumin Globulin Ratio 1.8 (1.0-2.8); Alkaline Phosphatase 67 U/L (38-126); Aspartate Aminotransferase 37 IU/L (14-36); BUN Creatinine Ratio 20.5 (6-22); Bilirubin Total 0.4 mg/dL (0.2-1.3); Blood Urea Nitrogen 16 mg/dL (7-17); Calcium 9.6 mg/dL (8.4-10.2); Carbon Dioxide 26 mmol/L (22-32); Chloride 104 mmol/L (98-107); Estimated Glomerular Filt Rate > 60 mL/min (>60); Globulin 2.6 g/dL (1.7-4.1); Glucose 96 mg/dL (80-110); HEMOLYSIS < 15 (0-50); Sodium 139 mmol/L (137-145); Total Protein 7.2 g/dL (6.3-8.2)
== END ==
PROVIDERS: PCP Internal Medicine; Referring Provider Internal Medicine; Visit Provider Internal Medicine
DX: E78.2 Mixed hyperlipidemia (principal); I10 Essential (primary) hypertension
CPT/HCPCS: 36415; 80053

== ENCOUNTER → 2025-04-08 08:08 | Outpatient (CLI) | payer MEDICARE, MEDICAID, SELFPAY ==
--- NOTE | 2025-04-08 08:09 | DI.MG.S_ITS ---
MM screening mammo BI: 04/08/2025. BI-RADS: 2 CLINICAL: 64-year old female for bilateral screening mammogram. No Tyrer-Cuzick risk score calculation due to the patient's personal history of breast cancer. Patient reports a history of left breast carcinoma diagnosed at age 56. Status-post left lumpectomy with radiation therapy. No first-degree family history of breast cancer. PRIOR EXAMS 03/30/2024, 03/20/2023, 03/19/2022, 03/17/2021, 03/16/2020, 01/12/2019, 12/27/2017, 04/04/2017, 02/04/2017, 01/03/2017, 12/26/2016, 12/13/2016. MAMMOGRAPHY TECHNIQUE: 2D and 3D (tomosynthesis) digital mammographic views obtained, with additional images as needed for full coverage. Current study was also evaluated with a Computer Aided Detection (CAD) system. DENSITY A. The breasts are almost entirely fatty. MAMMOGRAPHY FINDINGS Right: No suspicious mass, asymmetry, microcalcification, or other abnormality seen. Left: Benign-appearing post-surgical changes noted on the left. There are no suspicious masses, calcifications, or other findings in the breast. IMPRESSION: Right * No evidence of malignancy. Left * No evidence of malignancy with benign findings. RECOMMENDATIONS Bilateral * Annual screening mammography. OVERALL ASSESSMENT CATEGORY BI-RADS-2: Benign. The [employer] recommends annual screening mammography beginning at age 40 for women with average risk of breast cancer. ELECTRONICALLY SIGNED: Joan Patel M.D. on 04/08/2025 at 05:28:22 PM PT Interpreting Station ID: [id number]
== END ==
PROVIDERS: PCP Internal Medicine; Referring Provider Internal Medicine; Visit Provider Internal Medicine
DX: Z12.31 Encounter for screening mammogram for malignant neoplasm of breast (principal); Z85.3 Personal history of malignant neoplasm of breast; R92.313 Mammographic fatty tissue density, bilateral breasts
CPT/HCPCS: 77063; 77067